=== PATIENT | female | born 1960 | race Caucasian/White ===

== ENCOUNTER → 2017-02-18 | Outpatient (CLI) | payer OTHER ==
[~2017-02-18] MED LIST: BUPR-83 PO; CLTP PO; CLX20 PO; CRS20 PO; DICL-201 PO; HYDUNK; LVXUNK; VITAMIN D; VTMB12UNK; amitiza
[2017-02-18 18:08] LABS: THYROID STIMULATING HORMONE 0.048 uIu/ml (0.300-4.500)
== END | disposition home or self-care (01) ==
LOC: C.LABPBG 15:33
PROVIDERS: ATTEND Internal Medicine Endocrinology, Diabetes & Metabolism
DX: E03.9 Hypothyroidism, unspecified (principal)

== ENCOUNTER 2023-12-02 14:48 | Inpatient (IN) ==
--- NOTE | 2023-12-02 15:52 | Emergency Department Note ---
Impression & Plan Depression with suicidal ideation, Acute UTI (urinary tract infection) ED Provider Note NAME: JOHN YI AGE: 63 SEX: F : 1960 ARRIVES VIA: Walk-In INFORMANT: Patient, ED PROVIDER(S): Scot Pedroza DO CHIEF COMPLAINT: Mental health evaluation HPI: The patient is a 63-year-old female who presented to the emergency department for mental health evaluation. The patient had an episode 2 weeks ago where she had an intervention. Family members were concerned about her. They thought that she was a threat to herself. The patient was seen by crisis. She did not get admitted to a mental health facility at that time. Symptoms continue to escalate the patient continues to have suicidal ideation with a plan to overdose. She went to see her family doctor today and was was sent directly to the emergency department for further evaluation. The patient denies any attempts at suicide. She denies having any recent alcohol or drug use. The patient admits to having significant depression but currently does not have a therapist. ROS: See above HPI for pertinent positives & negatives. A total of 10 systems reviewed and were otherwise negative. PAST MEDICAL HISTORY: See Below PAST SURGICAL HISTORY: See Below FAMILY HISTORY: See Below SOCIAL HISTORY: See Below HOME MEDICATIONS: See Below ALLERGIES: See Below VITALS: See Below PHYSICAL EXAMINATION: GENERAL: The patient is awake and alert. She appears anxious. EYES: The conjunctivae are clear. The pupils are round and reactive. EARS, NOSE, MOUTH AND THROAT: The nose is without any evidence of any deformity. NECK: The neck is nontender and supple. RESPIRATORY: Normal respiratory effort is noted there is no evidence of wheezing rhonchi or rales CARDIOVASCULAR: Regular rate and rhythm noted there no murmurs rubs or gallops normal S1 normal S2. GASTROINTESTINAL: The abdomen is soft. Abdomen is nontender. MUSCULOSKELETAL/EXTREMITIES: There is no evidence of gross deformity full range of motion is noted in the hips and shoulders. SKIN: There is no obvious evidence of any rash. There are no petechiae, pallor or cyanosis noted. NEUROLOGIC: Patient is awake alert and oriented x3. Gait was steady. PSYCH: The patient makes good eye contact mostly evaluation. The patient's affect is flat. She continues to admit to suicidal ideationsMood disorder, infection, hypoglycemia, electrolyte abnormalities, cardiac sources, intracerebral event, toxicologic, trauma, neurologic, as well as other pathologies. . MEDICAL DECISION MAKING: The patient is a 63-year-old female who presented to the emergency department for an evaluation mental health issues. The patient was referred here by her family doctor. She was having significant depression with suicidal ideation. The patient appeared to be in crisis. The patient was medically cleared in the emergency department but does appear to have signs of urinary tract infection on urinalysis. She was started on antibiotics in the emergency department. I discussed patient's condition with the mental health geriatric case manager. It does appear the patient would be a good candidate for inpatient management. She is currently being evaluated by [facility] for possible inpatient management at our facility. Triage Nursing notes reviewed. Prior medical records reviewed Vital Signs: reviewed and remarkable for no significant abnormalities Differential diagnosis: Mood disorder, infection, hypoglycemia, electrolyte abnormalities, cardiac sources, intracerebral event, toxicologic, trauma, neurologic, as well as other pathologies. ER treatment provided: See below Diagnostics interpreted by me: ECG: EKG was obtained in the emergency department. My interpretation is normal sinus rhythm at 66 bpm. There is no ectopy. There is no acute ST segment abnormalities noted. This was compared to a tracing from February 01, 2022. No changes were noted. Laboratory studies: As stated above and show below. Imaging studies: See below. Consultation(s): I discussed this case with the emergency departmental health geriatric case manager. Past Med/Surg History Problem List (Updated 12/02/23 @ 18:46 by Scot Pedroza DO) Acute UTI (urinary tract infection) (Acute) Depression with suicidal ideation (Acute) Stress incontinence Urinary incontinence Nocturia Urinary urgency Sensory deficit present Psoriatic arthritis Parkinsonism follows with [facility] Mild sleep apnea pt unaware. Mild cognitive impairment Joint pain Impaired functional mobility, balance, gait, and endurance Hypothyroidism in adult Hyperlipidemia Carmen's disease Frequent falls Fatigue Extremity pain Chronic rhinitis COVID-19 (Acute) Medical History Psoriatic arthritis Depression Anxiety Hyperlipidemia Frequent falls last fell out of bed in November 2023 - reports no injury. does not use cane/walker Carmen's disease Parkinsonism follows with [facility] Fatigue chronic fatigue History of COVID-19 12/20/22 -> severe cold and cough, headaches. treated with paxlovid. developed pneumonia and treated with abx. since resolved. Nausea and vomiting after administration of anesthetic agent History of anesthesia reaction interscaline block for shoulder surgery was ineffective Chronic back pain Urinary urgency GERD (gastroesophageal reflux disease) Chronic steroid use Cognitive decline mild - alert and oriented x3. "forgetful" at times. Ischemic vascular disease unsteady gait and lightheaded at times, last episode/last fall November 2023 - pt reports she fell out bed, no injury. no problems since. follows with [facility] Hypertension Hypothyroid Surgical History H/O bilateral oophorectomy (~2004) Hx of hysterectomy (~1994) S/P left knee arthroscopy S/P epidural steroid injection S/P arthroscopy of right shoulder History of esophagogastroduodenoscopy (EGD) History of colonoscopy History of herniorrhaphy History of appendectomy History of endoscopic sinus surgery History of nasal septoplasty Hx of LASIK Family History Mother Heart disease Myocardial infarction Father Prostate cancer Heart disease Other No family history of adverse response to anesthesia Social History Smoking Status: Never smoker Second Hand Exposure: Yes (parents smoked); Do You Dip or Chew Tobacco: No; Hx Alcohol Use: Yes Hx Substance Use: No Preferred Language: Guatemalan Communication Ability: Effective 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 Sulfa (Sulfonamide AdvReac Severe vaginal Verified 11/27/23 13:48 Antibiotics) yeast infections & arm skin blisters Home Meds Home Medications Medication Instructions Recorded Confirmed Cbd Oil 3 drp PO QAM PRN preventative of 02/01/22 12/02/23 joint problems Chaga Mushroom Supp 1 ea PO DAILY 02/01/22 12/02/23 folic acid 1 mg tablet 1 mg PO BID 02/01/22 12/02/23 levothyroxine 75 mcg tablet 75 mcg PO 0300 02/01/22 12/02/23 (Synthroid) methotrexate sodium 2.5 mg tablet 15 mg PO WK 02/01/22 12/02/23 pantoprazole 40 mg tablet,delayed 40 mg PO QAM 02/01/22 12/02/23 release simvastatin 20 mg tablet 20 mg PO HS 02/01/22 12/02/23 antiarthritic combination no.2 900 900 mg PO BID 04/07/22 12/02/23 mg tablet (glucosamine-chondroitin) calcium carbonate 600 mg-vitamin 1 cap PO BID 04/07/22 12/02/23 D3 12.5 mcg (500 unit) capsule (Calcium 600 with Vitamin D3) verapamil 240 mg 24 hr 240 mg PO BID 08/21/22 12/02/23 capsule,extended release sertraline 100 mg tablet 100 mg PO BID 11/27/23 12/02/23 Results & Data (ED) Vital Signs Vital Signs - 24 hr 12/02/23 15:16 12/02/23 18:49 Temperature 36.7 C 36.6 C Temperature Source Temporal Artery Scan Oral Pulse Rate 76 Pulse Rate [Right Finger] 74 Pulse Rhythm [Right Finger] Regular Pulse Strength [Right Finger] Normal Respiratory Rate 16 16 Respiratory Effort / Characteristics Non-Labored Spontaneous Non-Labored Spontaneous Respiratory Depth Normal Normal Respiratory Pattern Regular Regular Blood Pressure 141/78 H Blood Pressure [Left Arm] 115/74 Blood Pressure Mean 99 Blood Pressure Mean [Left Arm] 87 Blood Pressure Position Sitting Blood Pressure Position [Left Arm] Semi-fowlers Pulse Oximetry 97 97 Oxygen Delivery Method Room Air Room Air Sepsis Recent Fever Within 48 Hours No Sepsis New/Unexplained Change in Mental Status N/A Sepsis Action Taken by Nursing No Action Required Home Medications Current Medication List: was personally reviewed by me Laboratory Data Attestation: I reviewed the patient's lab results. 12/02/23 16:00 12/02/23 16:00 Lab Results 12/02/23 12/02/23 12/02/23 Range/Units 16:00 17:12 Unknown WBC 7.94 (4.8-10.8) K/ul RBC 4.23 (4.20-5.40) M/uL Hgb 13.5 (12.0-16.0) g/dl Hct 40.7 (37.0-47.0) % MCV 96.2 (80.0-100.0) fL MCH 31.9 (25.0-34.0) pg MCHC 33.2 (32.0-36.0) g/dL RDW Std Deviation 53.7 H (36.4-46.3) fL RDW Coeff of Karol 15.3 H (11.5-14.5) % Plt Count 230 (130-400) K/uL MPV 9.8 (9.4-12.4) fL Immature Gran % (Auto) 0.5 % Neut % (Auto) 71.6 % Lymph % (Auto) 14.5 % Dubois % (Auto) 8.3 % Eos % (Auto) 4.3 % Baso % (Auto) 0.8 % Neut # (Auto) 5.69 (1.40-6.50) K/uL Lymph # (Auto) 1.15 L (1.20-3.40) K/uL Dubois # (Auto) 0.66 H (0.11-0.59) K/uL Eos # (Auto) 0.34 (0.00-0.50) K/uL Baso # (Auto) 0.06 (0.00-0.20) K/uL Immature Gran # (Auto) 0.04 (0.01-0.20) K/uL Sodium 138 (136-145) mmol/L Potassium 4.3 (3.5-5.1) mmol/L Chloride 106 (98-107) mmol/L Carbon Dioxide 24 (21-32) mmol/L Anion Gap 8 (3-11) BUN 16 (6-23) mg/dl Creatinine 1.12 (0.6-1.2) mg/dl Est Cr Clr Drug Dosing 55.0 ml/min Est GFR ( Amer) 59.7 ml/min Est GFR (Non-Af Amer) 51.5 ml/min BUN/Creatinine Ratio 14.3 (10-20) Glucose 93 (70-99(Fasting)) mg/dl Calcium 9.6 (8.6-10.3) mg/dl Total Bilirubin 0.4 (0.2-1.0) mg/dl AST 20 (13-39) U/L ALT 9 (7-52) U/L Alkaline Phosphatase 88 (34-104) U/L Total Protein 7.2 (6.0-8.3) gm/dl Albumin 4.4 (3.4-5.0) gm/dl Globulin 2.8 (2.5-4.0) gm/dl Albumin/Globulin Ratio 1.6 (0.9-2) TSH 1.963 (0.300-4.500) uIu/ml Urine Color Yellow Urine Appearance Cloudy A (Clear) Urine pH 6.0 (4.5-7.5) Ur Specific [place] 1.013 (1.000-1.030) Urine Protein Negative (Negative) Urine Glucose (UA) Negative (Negative) Urine Ketones Negative (Negative) Urine Blood Negative (Negative) Urine Nitrite Negative (Negative) Urine Bilirubin Negative (Negative) Urine Urobilinogen Negative (Negative) Ur Leukocyte Esterase 3+ H (Negative) Urine WBC (Auto) >50 H (0-5) /hpf Urine RBC (Auto) 0-2 (0-2) /hpf U Hyaline Cast (Auto) 0-2 (0-2) /lpf U Epithel Cells (Auto) 0-2 (0-2) /hpf Urine Bacteria (Auto) 4+ H (None Seen) Salicylates < 3.0 L (3.0-30) mg/dl Urine Opiates Screen Neg (Neg) Ur Methadone, Qual Neg (Neg) Acetaminophen < 3 L (10-30) ug/ml Urine Barbiturates Neg (Neg) Ur Phencyclidine (PCP) Neg (Neg) U Amphetamin/Meth Scrn Neg (Neg) MDMA (Ecstasy) Screen Neg (Neg) U Benzodiazepines Scrn Neg (Neg) Ur Cocaine Metabolite Neg (Neg) U Marijuana (THC) Screen Neg (Neg) Ethyl Alcohol mg/dL < 10.0 (<10.0) mg/dl SARS-CoV-2, RNA, NAAT NEGATIVE (NEGATIVE) Administered Medications Discontinued Medications Cefdinir (Cefdinir 300 Mg Cap) 600 mg PO ONE STA; Protocol Stop: 12/02/23 18:45 Last Admin: 12/02/23 18:48 Dose: 600 mg Documented By: MOLINA Discharge Plan Visit Data Chief Complaint: Mental Health Evaluation Stated Complaint: SUICIDAL THOUGHTS, REF BY DOC ED Provider: Scot Pedroza Discharge Problem: Depression with suicidal ideation, Acute UTI (urinary tract infection) Patient Disposition: Still a Patient Forms Stand Alone Forms: My [facility] [employer], Suicide Prevention Resources Prescriptions Prescriptions: No Action verapamil 240 mg capsule,ext rel. pellets 24 hr 240 mg PO BID calcium carbonate-vitamin D3 [Calcium 600 with Vitamin D3] 600 mg-12.5 mcg (500 unit) capsule 1 cap PO BID glucosamine-chondroitin 900 mg tablet 900 mg PO BID levothyroxine [Synthroid] 75 mcg tablet 75 mcg PO 0300 methotrexate sodium 2.5 mg tablet 15 mg PO WK pantoprazole 40 mg tablet,delayed release (DR/EC) 40 mg PO QAM simvastatin 20 mg tablet 20 mg PO HS folic acid 1 mg tablet 1 mg PO BID Cbd Oil 3 drp PO QAM PRN (Reason: preventative of joint problems) Chaga Mushroom Supp 1 ea PO DAILY Rx Instructions: Take with tea sertraline 100 mg Tablet 100 mg PO BID Referrals Referrals: Murali Marin MD [Primary Care Provider] -
[2023-12-02 16:25] LABS: Basophils # (auto) 0.06 K/uL (0.00-0.20); Basophils % (auto) 0.8 %; Eosinophils # (auto) 0.34 K/uL (0.00-0.50); Eosinophils % (auto) 4.3 %; Hematocrit (blood only) 40.7 % (37.0-47.0); Hemoglobin 13.5 g/dl (12.0-16.0); Immature Granulocytes # (auto) 0.04 K/uL (0.01-0.20); Immature Granulocytes % (auto) 0.5 %; Lymphocytes # (auto) 1.15 K/uL (1.20-3.40); Lymphocytes % (auto) 14.5 %; Mean Corpuscular Hemoglobin 31.9 pg (25.0-34.0); Mean Corpuscular Hgb Conc 33.2 g/dL (32.0-36.0); Mean Corpuscular Volume 96.2 fL (80.0-100.0); Mean Platelet Volume 9.8 fL (9.4-12.4); Monocytes # (auto) 0.66 K/uL (0.11-0.59); Monocytes % (auto) 8.3 %; Neutrophils # (auto) 5.69 K/uL (1.40-6.50); Neutrophils % (auto) 71.6 %; Platelet Count 230 K/uL (130-400); RDW Coefficient of Variation 15.3 % (11.5-14.5); RDW Standard Deviation 53.7 fL (36.4-46.3); Red Blood Count 4.23 M/uL (4.20-5.40); White Blood Count 7.94 K/ul (4.8-10.8)
[2023-12-02 16:51] LABS: Albumin Globulin Ratio 1.6 (0.9-2); Albumin Level 4.4 gm/dl (3.4-5.0); BUN Creatinine Ratio 14.3 (10-20); Bilirubin,Total 0.4 mg/dl (0.2-1.0); Calcium 9.6 mg/dl (8.6-10.3); Est GFR (African American) 59.7 ml/min; Est GFR (Non-African American) 51.5 ml/min; Globulin 2.8 gm/dl (2.5-4.0); Potassium 4.3 mmol/L (3.5-5.1); Total Protein 7.2 gm/dl (6.0-8.3)
[2023-12-02 16:54] LABS: Acetaminophen < 3 ug/ml (10-30); Salicylate < 3.0 mg/dl (3.0-30)
[2023-12-02 17:04] LABS: Thyroid Stimulating Hormone 1.963 uIu/ml (0.300-4.500)
[2023-12-02 17:39] LABS: Appearance Urine Cloudy (Clear); Bacteria Urine Automated 4+ (None Seen); Bilirubin Urine Negative (Negative); Blood Urine Negative (Negative); Cast Urine Automated 0-2 /lpf (0-2); Color Urine Yellow; Epithelial Cell Urine Auto 0-2 /hpf (0-2); Glucose Urine UA Negative (Negative); Ketones Urine Negative (Negative); Leukocyte Esterase Urine 3+ (Negative); Nitrite Urine Negative (Negative); Protein Urine Negative (Negative); RBC Urine Automated 0-2 /hpf (0-2); Specific Gravity Urine 1.013 (1.000-1.030); Urobilinogen Urine Negative (Negative); WBC Urine Automated >50 /hpf (0-5)
[2023-12-02 18:06] LABS: Amphetamines+Metham, Urine Neg (Neg); Barbiturates, Urine Neg (Neg); Benzodiazepine, Urine Neg (Neg); Cocaine, Urine Neg (Neg); MDMA (Ecstacy), Urine Neg (Neg); Marijuana, Urine Neg (Neg); Methadone, Urine Neg (Neg); Opiate, Urine Neg (Neg); Phencyclidine, Urine Neg (Neg)
[2023-12-02] MEDS: CEFDINIR 300 MG CAP PO STA (18:48)
[2023-12-02] MEDS ORDERED: BISMUTH SUBSALICYLATE LIQD 236 ML PO PRN (21:43)
[2023-12-02] MEDS ORDERED: MAGNESIUM HYDROXIDE SUSP 30 ML UDC PO PRN (21:43)
[2023-12-02] MEDS ORDERED: ALUMINUM/MAGNESIUM SUSP 30 ML UDC PO PRN (21:43)
[2023-12-02] MEDS ORDERED: SODIUM CHLORIDE 0.65% NA SOLN 45 ML (OCEAN) PRN (21:43)
[2023-12-02 22:12] LABS: Chol HDL Ratio 2.4 (0-5)
[2023-12-02] MEDS: SERTRALINE HCL 100 MG TABLET PO SCH (23:11)
[2023-12-02] MEDS: hydrOXYzine HCl 25 MG TAB PO PRN (23:14)
[2023-12-03 07:59] LABS: Estimated Average Glucose 128 mg/dl; Hemoglobin A1C 6.1 % (4.5-5.6)
[2023-12-03] MEDS: CEFDINIR 300 MG CAP PO SCH (11:41)
--- NOTE | 2023-12-03 13:16 | History & Physical ---
Date of Service December 03, 2023 Impression / Recommendations Impression 63 year old female with minimal past psychiatric history who presents with suicidal ideations after being the victim of a romance scam. (1) Adjustment disorder with depressed mood: Plan Admit to inpatient unit. Participate in all milieu therapy. Patient's current medications of 200mg Sertraline will be continued. Therapy will be the mainstay of treatment for this situation: Acknowledging that this was a scam and moving forward to ensure it doesn't happen again. Suicide Risk Level Suicide Risk Level Comments: risk level low while the patient is in the psych unit Protective Factors Assessment Employed: No Psychiatric History Identifying Data JOHN YI is a 63-year-old F who currently lives with her and was admitted on 12/02/23 21:29 on a 201 voluntary commitment for suicidal ideations secondary to her being the victim of a romance scam. Chief Complaint "I started a friendship with Rafael". History of Present Illness 63 year old female with no significant past psychiatric history who presented after voicing suicidal ideations with a plan to overdose on her medications. The patient recently was the subject of family intervention because she has been involved online with a romance scammer that she was led to believe was an actor Rafael Deluca. She described how this months long online romance occurred. It has all the classic red flags of a typical romance scam. She states that she sent at least 1000 dollars in [employer] Gift cards to the scammer. Initially when we started the interview, the patient continued to talk about the scammer as "Luke" and said she was holding out hope one day to actually meet him. I explained to her in depth how these scams work and everything that I outlined to her about their methods she recognized. We discussed that "Rafael" had his photos stolen and the person sending her love notes and even bush was actually a group of young west men. She did superficially acknowledge that it was probably the case. We discussed that getting through this embarrassing situation was by learning as much as she can about what happened to her and realizing that she was profiled and targeted by criminals. One step that she agreed to was to not refer to the person by the name he gave but by calling him "the scammer". She says that she knows she will get through this but it is so difficult. At the time of the interview, she denied suicidal or homicidal ideation and showed no signs of amberly or psychosis. She realizes that she became a target because she is not happy in her relationship with her : She feels unappreciated by her and two adult children. She particularly wants to get through this so she can see her grandchildren again. Past Psychiatric History Previous Psych History: Patient has been prescribed Sertraline 100 mg BID by her primary care practitioner. Outpatient Services: none at this time Previous Psych Admissions: denies History of Previous Suicide Attempt: No Allergies Allergy/AdvReac Type Severity Reaction Status Date / Time ampicillin Allergy Severe Hives Verified 11/27/23 13:48 latex Allergy Intermediate rash and Verified 11/27/23 13:48 localized swelling Penicillins Allergy Intermediate able to Verified 11/27/23 13:48 tolerate penicillin since having ampicillin allergy. Sulfa (Sulfonamide AdvReac Severe vaginal Verified 11/27/23 13:48 Antibiotics) yeast infections & arm skin blisters Home Medications Medication Instructions Recorded Confirmed Type Cbd Oil 3 drp PO QAM PRN preventative of 02/01/22 12/02/23 History joint problems Chaga Mushroom Supp 1 ea PO DAILY 02/01/22 12/02/23 History folic acid 1 mg tablet 1 mg PO BID 02/01/22 12/02/23 History levothyroxine 75 mcg tablet 75 mcg PO 0300 02/01/22 12/02/23 History (Synthroid) methotrexate sodium 2.5 mg tablet 15 mg PO WK 02/01/22 12/02/23 History pantoprazole 40 mg tablet,delayed 40 mg PO QAM 02/01/22 12/02/23 History release simvastatin 20 mg tablet 20 mg PO HS 02/01/22 12/02/23 History antiarthritic combination no.2 900 900 mg PO BID 04/07/22 12/02/23 History mg tablet (glucosamine-chondroitin) calcium carbonate 600 mg-vitamin 1 cap PO BID 04/07/22 12/02/23 History D3 12.5 mcg (500 unit) capsule (Calcium 600 with Vitamin D3) verapamil 240 mg 24 hr 240 mg PO BID 08/21/22 12/02/23 History capsule,extended release sertraline 100 mg tablet 100 mg PO BID 11/27/23 12/02/23 History Family History Family History of: Doesn't Know Alcohol History Hx of Alcohol Use Over the Past 12 Months: No AUDIT Total Score: 0 Smoking Use Have You Smoked or Used Tobacco Products in the Last 30 Days: No Smoking Status: Never smoker Substance History Hx of Prescription Med Misuse Over the Past 12 Months: No Hx of Over the Counter Med Misuse Over the Past 12 Months: No Hx of Inhalent Misuse Over the Past 12 Months: No Hx of Organic Substance Use Over the Past 12 Months: No Hx of Illegal Substances/Street Drug Use Over Past 12 Months: No Problems as a Result of Past Substance Use: None Identified Personal History Living Arrangements: Home Highest Grade Completed: High School Graduate Marital Status: Number Of Children: 2 Beliefs That Will Affect Care: None Patient History Medical History Psoriatic arthritis Depression Anxiety Hyperlipidemia Frequent falls last fell out of bed in November 2023 - reports no injury. does not use cane/walker Carmen's disease Parkinsonism follows with [facility] Neurology Fatigue chronic fatigue History of COVID-19 12/20/22 -> severe cold and cough, headaches. treated with paxlovid. developed pneumonia and treated with abx. since resolved. Nausea and vomiting after administration of anesthetic agent History of anesthesia reaction interscaline block for shoulder surgery was ineffective Chronic back pain Urinary urgency GERD (gastroesophageal reflux disease) Chronic steroid use Cognitive decline mild - alert and oriented x3. "forgetful" at times. Ischemic vascular disease unsteady gait and lightheaded at times, last episode/last fall November 2023 - pt reports she fell out bed, no injury. no problems since. follows with [facility] Neurology Hypertension Hypothyroid Surgical History H/O bilateral oophorectomy (~2004) Hx of hysterectomy (~1994) S/P left knee arthroscopy S/P epidural steroid injection S/P arthroscopy of right shoulder History of esophagogastroduodenoscopy (EGD) History of colonoscopy History of herniorrhaphy History of appendectomy History of endoscopic sinus surgery History of nasal septoplasty Hx of LASIK Family History Mother Heart disease Myocardial infarction Father Prostate cancer Heart disease Other No family history of adverse response to anesthesia Social History Smoking Status: Never smoker Second Hand Exposure: Yes (parents smoked); Do You Dip or Chew Tobacco: No; Hx Alcohol Use: Yes Hx Substance Use: No Preferred Language: Marshallese Communication Ability: Effective Mail Distribution Scheme Examiner Required: No Beliefs That Will Affect Care: None Current Living Situation: Spouse Feels Safe at Home: Yes Gender Identity: Female Assistive Devices: Cane Physical Exam Mental Examination: Appearance: Well Groomed Eye Contact: Breaks Contact Motor Behavior: Unremarkable Speech: Normal Mood: Calm Affect: Calm Thought Process: Intact Hallucinations: None Insight: Poor Judgement: Poor Psychiatric: Orientation: alert and oriented x 3 Apperance: appropriately dressed and appropriately groomed Eye Contact: good eye contact Motor Behavior: + tremor Speech: normal rate/rhythm/volume of speech Affect: + depressed affect and + anxious affect Mood: + depressed mood and + anxious mood Thought Process: goal directed thought process, linear/logical thought process and clear/coherent thought process Thought Content: reality based without delusions Suicidal Thoughts: denies suicidal thoughts, denies suici carmela plan and denies suicidal intent Homicidal Thoughts: denies homicidal thoughts, denies homicidal plan and denies homicidal intent Hallucinations: no auditory hallucinations, no visual hallucinations, no tactile hallucinations and no gustatory hallucinations Cognition: recent memory grossly intact, remote memory grossly intact and attention grossly intact Estimated Intelligence: average estimated intelligence and consistent with education level Insight: + impaired insight Judgment: + impaired judgement Vital Signs (Past 24 Hours): Last Vital Signs Temp 36.5 C 12/03/23 06:34 Pulse 75 12/03/23 06:35 Resp 16 12/03/23 06:34 BP 127/84 12/03/23 06:35 Pulse Ox 97 12/02/23 23:06 O2 Del Method Room Air 12/02/23 23:06 Results & Data ([facility]) Laboratory Results Laboratory Results - last 24 hr 12/02/23 12/02/23 12/02/23 16:00 17:12 Unknown WBC 7.94 RBC 4.23 Hgb 13.5 Hct 40.7 MCV 96.2 MCH 31.9 MCHC 33.2 RDW Std Deviation 53.7 H RDW Coeff of Karol 15.3 H Plt Count 230 MPV 9.8 Immature Gran % (Auto) 0.5 Neut % (Auto) 71.6 Lymph % (Auto) 14.5 [place] % (Auto) 8.3 Eos % (Auto) 4.3 Baso % (Auto) 0.8 Neut # (Auto) 5.69 Lymph # (Auto) 1.15 L [place] # (Auto) 0.66 H Eos # (Auto) 0.34 Baso # (Auto) 0.06 Immature Gran # (Auto) 0.04 Sodium 138 Potassium 4.3 Chloride 106 Carbon Dioxide 24 Anion Gap 8 BUN 16 Creatinine 1.12 Est Cr Clr Drug Dosing 55.0 Est GFR ( Amer) 59.7 Est GFR (Non-Af Amer) 51.5 BUN/Creatinine Ratio 14.3 Glucose 93 Estimat Average Glucose 128 Hemoglobin A1c 6.1 H Calcium 9.6 Total Bilirubin 0.4 AST 20 ALT 9 Alkaline Phosphatase 88 Total Protein 7.2 Albumin 4.4 Globulin 2.8 Albumin/Globulin Ratio 1.6 Triglycerides 74 Cholesterol 149 LDL Cholesterol, Calc 71 VLDL Cholesterol, Calc 15 HDL Cholesterol 63 Cholesterol/HDL Ratio 2.4 TSH 1.963 Urine Color Yellow Urine Appearance Cloudy A Urine pH 6.0 Ur Specific [place] 1.013 Urine Protein Negative Urine Glucose (UA) Negative Urine Ketones Negative Urine Blood Negative Urine Nitrite Negative Urine Bilirubin Negative Urine Urobilinogen Negative Ur Leukocyte Esterase 3+ H Urine WBC (Auto) >50 H Urine RBC (Auto) 0-2 U Hyaline Cast (Auto) 0-2 U Epithel Cells (Auto) 0-2 Urine Bacteria (Auto) 4+ H Salicylates < 3.0 L Urine Opiates Screen Neg Ur Methadone, Qual Neg Acetaminophen < 3 L Urine Barbiturates Neg Ur Phencyclidine (PCP) Neg U Amphetamin/Meth Scrn Neg MDMA (Ecstasy) Screen Neg U Benzodiazepines Scrn Neg Ur Cocaine Metabolite Neg U Marijuana (THC) Screen Neg Ethyl Alcohol mg/dL < 10.0 SARS-CoV-2, RNA, NAAT NEGATIVE Current Inpatient Medications Current Inpatient Medications: Current Inpatient Medications Acetaminophen (Acetaminophen 325 Mg Tab) 650 mg PO Q4H PRN PRN Reason: Headache or Minor Fever Stop: 01/01/24 21:42 Al Hydrox/Mg Hydrox/Simethicone (Aluminum/Magnesium Susp 30 Ml Udc) 30 ml PO Q4H PRN PRN Reason: GI Upset Stop: 01/01/24 21:42 Bismuth Subsalicylate (Bismuth Subsalicylate Liqd 236 Ml) 15 ml PO PRN PRN PRN Reason: Loose Stool Stop: 01/01/24 21:42 Cefdinir (Cefdinir 300 Mg Cap) 300 mg PO BID [facility]; Protocol Stop: 12/05/23 08:59 Last Admin: 12/03/23 11:41 Dose: 300 mg Folic Acid (Folic Acid 1 Mg Tab) 1 mg PO BID ORA Stop: 01/02/24 20:59 Hydroxyzine HCl (Hydroxyzine Hcl 25 Mg Tab) 50 mg PO HSZ PRN PRN Reason: Insomnia Stop: 01/01/24 21:42 Last Admin: 12/03/23 01:06 Dose: 50 mg Hydroxyzine HCl (Hydroxyzine Hcl 25 Mg Tab) 25 mg PO Q4H PRN PRN Reason: Anxiety Stop: 01/01/24 21:42 Levothyroxine Sodium (Levothyroxine Sodium 75 Mcg Tablet) 75 mcg PO 0300 [facility] Stop: 01/03/24 02:59 Magnesium Hydroxide (Magnesium Hydroxide Susp 30 Ml Udc) 30 ml PO DAILY PRN PRN Reason: Constipation Stop: 01/01/24 21:42 Methotrexate (Methotrexate Sodium 2.5 Mg Tab) 15 mg PO WK ORA Stop: 01/02/24 13:14 Pantoprazole Sodium (Pantoprazole 40 Mg Tab) 40 mg PO QAM ORA Stop: 01/03/24 08:59 Sertraline HCl (Sertraline Hcl 100 Mg Tablet) 100 mg PO BID ORA Stop: 01/01/24 22:59 Last Admin: 12/03/23 11:41 Dose: 100 mg Sertraline HCl (Sertraline Hcl 100 Mg Tablet) 100 mg PO BID [facility] Stop: 01/02/24 20:59 Simvastatin (Simvastatin 20 Mg Tab) 20 mg PO HS ORA Stop: 01/02/24 21:59 Sodium Chloride (Sodium Chloride 0.65% Na Soln 45 Ml ([place])) 1 - 2 sprays NA PRN PRN PRN Reason: Nasal Dryness/Congestion Stop: 01/01/24 21:42 Verapamil HCl (Verapamil Hcl 240 Mg Tabcr) 240 mg PO BID [facility] Stop: 01/02/24 20:59
--- NOTE | 2023-12-03 15:15 | Electrocardiogram Report ---
Test Reason : Blood Pressure : / mmHG Vent. Rate : 066 BPM Atrial Rate : 066 BPM P-R Int : 190 ms QRS Dur : 074 ms QT Int : 424 ms P-R-T Axes : 064 041 049 degrees QTc Int : 444 ms Normal sinus rhythm Possible Left atrial enlargement Septal infarct (cited on or before 01-FEB-2022) Abnormal ECG When compared with ECG of 01-FEB-2022 00:21, Vent. rate has decreased BY 37 BPM Confirmed by Scot Leslie ([id number]) on 12/03/2023 3:14:52 PM Referred By: Mac Marin Confirmed By:Scot Leslie
[2023-12-03] MEDS ORDERED: SERTRALINE HCL 100 MG TABLET PO SCH (21:00)
--- OUTSIDE RECORDS SUMMARY | 2023-12-03 21:22 | External Medical Summary | Summary of Care ---
Author Name Unknown Organization [facility] Address [address] [place] [address] Phone [phone] Care Team Providers Care Motor Setter Name Role Phone Santana Bellamy PA-C Primary Care Provider [phone] Encounter Details Date Type Department Care Team (Late st Contact Info) Description 11/30/2023 Orders Only Laboratory [address] [place] [id number] Pamela Hammer CRNP [address] [address] Urgency of urination*; Stress incontinence; Mixed incontinence Allergies Active Allergy Reactions Criticality Noted Date Comments Sulfamethoxazole-Trimethoprim Rash 2016 Erythromycin 05/07/2004 nausea Latex 08/22/2010 documented as of this encounter (statuses as of 11/30/2023) Medications Medication Sig Dispensed Refills Start Date End Date Status CALCIUM 600 + D 600-200 MG-UNIT PO TABS daily 0 01/07/2007 Active BUPROPION HCL 200 MG PO TB12 1 tab daily Active BIOTIN 1 MG PO CAPS 1 tab daily Acti ve vitamin c (ASCORBIC ACID) 500 MG Tablet Daily Activ e Cetirizine HCl (ZYRTEC ALLERGY) 10 MG Capsule Daily Active pantoprazole (PROTONIX) 20 MG TBEC Daily Act gilson METHOtrexate 2.5 MG TabletIndications:8 Tabs once weekly Take by mouth once a week. Indications: 8 Tabs once weekly Active Diclofenac (ZORVOLEX) 35 MG CAPS Take by mouth. Active levothyroxine sodium (LEVOXYL) 112 MCG Tablet Take 112 mcg by mouth daily first thing in the morning. (at least 30 min prior to breakfast or other meds) Active Nortriptyline HCl 50 MG Capsule Take 50 mg by mouth at bedtime. Active simvastatin (ZOCOR) 20 MG Tablet Take 20 mg by mouth daily. Active Topiramate (TOPAMAX) 50 MG Tablet Take 50 mg by mouth 2 times a day. Active Linaclotide 290 MCG Capsule Take 290 mcg by mouth daily before breakfast. Active azithromycin (ZITHROMAX) 500 MG Tablet Take 500 mg by mouth once a day on Thursday, Thursday, and Thursday only. Active Hydrocortisone 2.5 % External CreamIndications:Sebo rrheic dermatitis apply to affected area of rash, usually face after bathing only as needed 15 g 1 10/29/2020 Active Methotrexate 2.5 MG Oral Tablet Take by mouth. Active Xeljanz XR 11 MG Oral Tablet Extended Release 24 Hour (Tofacitinib Citrate ER) Take 11 mg by mouth. 05/30/2020 Active documented as of this encounter (statuses as of 11/30/2023) Active Problems Problem Noted Date Diagnosed Date Psoriatic arthritis 11/28/2016 Hx of actinic keratosis 11/20/2011 ADVANCE DIRECTIVE INFORMATION 01/07/2007 Overview: Yes, Patient instructed to provide copy of advance directive for provider to review and to be scanned into Electronic Medical Record Other allergic rhinitis 07/11/2004 Overview: ICD-10 update of inactive term Chronic sinusitis 07/11/2004 Esophageal reflux 05/07/2004 GENERALIZED ANXIETY DIS 05/07/2004 Headache Overview: ICD-10 update of inactive term Temporomandibular joint disorders, unspecified Degeneration of cervical intervertebral disc Chronic pharyngitis Chronic laryngitis documented as of this encounter (statuses as of 11/30/2023) Resolved Problems Problem Noted Date Diagnosed Date Resolved Date Chronic sinusitis 08/10/2008 Overview: Resolved per Duplicate Protocol #2. documented as of this encounter (statuses as of 11/30/2023) Social History Tobacco Use Types Packs/Day Years Used Date Smoking Tobacco: Never Smokeless Tobacco: Never Comments:passive smoke in ch ildhood from mother Alcohol Use Standard Drinks/Week Comments Yes 0 (1 standard drink = 0.6 oz pur e alcohol) a couple of times a year Sex and Gender Information Value Date Recorded Sex Assigned at Not on file Gender Identity Not on file Sexual Orientation Not on file Job Start Date Occupation Industry Not on file Not on file Not on file documented as of this encounter Plan of Treatment Scheduled Orders Name Type Priority Associated Diagnoses Orde r Schedule CULTURE, URINE, QUANTITATIVE Lab Routine Stress incontinence Mixed incontinence Urgency of urination Expected: 11/30/2023, Expires: 11/29/2024 BASIC METABOLIC PANEL Lab Routine Stress incontinence Mixed incontinence Urgency of urination Expected: 11/30/2023, Expires: 11/29/2024 CBC WITH WBC DIFFERENTIAL Lab Routine Stress incontinence Mixed incontinence Urgency of urination Expected: 11/30/2023, Expires: 11/29/2024 Health Maintenance Due Date Last Done Comments Lipid Panel 1958 Depression Screening 1970 HIV Screening 1973 TSH 1976 DTaP,Tdap,and Td Vaccines (1 - Tdap) 1977 Mammogram 1998 Cologuard 2003 Colonoscopy 2003 Colorectal Cancer Screening 2003 Fecal Occult Blood Test 2003 Sigmoidoscopy 2003 COVID-19 Vaccine (2 - Modern a risk series) 10/26/2020 09/28/2020 Pneumococcal Vaccine: 65+ Years (2 of 2 - PCV) 11/06/2021 11/06/2020 DXA Scan 2023 Influenza Vaccine (FLU shot) (Season Ended) 2024 Zoster Vaccines Completed 06/11/2020, 03/15/2020 GARDASIL-HPV IMMUNIZATION SERIES Aged Out No longer eligible b ased on patient's age to complete this topic Hepatitis B Aged Out No longer eligi ble based on patient's age to complete this topic MENINGOCOCCAL (MENACTRA/MENVEO) Aged Out No longer eligible b ased on patient's age to complete this topic documented as of this encounter Medical Devices Not on filedocumented as of this encounter Visit Diagnoses Diagnosis Urgency of urination- Primary Stress incontinence Female stress incontinence Mixed incontinence Mixed incontinence urge and stress (male)(female) documented in this encounter Care Teams Motor Setter Relationship Specialty Start Date End Date Santana Bellamy PA-C [address] [place] [id number] PCP - General Physician Weed Thinner 12/08/18 documented as of this encounter
[2023-12-03] MEDS: FOLIC ACID 1 MG TAB PO SCH (21:35)
[2023-12-03] MEDS: VERAPAMIL HCL 240 MG TABCR PO SCH (21:36)
[2023-12-03] MEDS: SIMVASTATIN 20 MG TAB PO SCH (21:36)
[2023-12-04] MEDS: LEVOTHYROXINE SODIUM 75 MCG TABLET PO SCH (00:17)
[2023-12-04] MEDS: PANTOprazole 40 MG TAB PO SCH (08:45)
--- NOTE | 2023-12-04 09:56 | Psychiatric Progress Note ---
Date of Service December 04, 2023 Impression / Recommendations Impression 63 year old female with minimal past psychiatric history who presents with suicidal ideations after being the victim of a romance scam. (1) Adjustment disorder with depressed mood: Plan Continue current treatment in the [facility]. Patient was already on ant depressant medication prior to admission, no reason to change it at this time. Suicide Risk Level Suicide Risk Level Comments: risk level low while the patient is in the psych unit Risk Factors Assessment Do You Have Access To A Gun?: Yes (Patient states she is unsure how to use firearms) Protective Factors Assessment Employed: No Interval History Chief Complaint "My family said they've been telling me the same thing". Review of Systems Sleep Information Total Hours of Sleep: 5 Sleep Comments: NE Vistaril at HS Meal Information Percent Meal Consumed - Breakfast: 75 Percent Meal Consumed - Lunch: 75 Percent Meal Consumed - Dinner: 100 Nutrition Comment: pt. ate some breakfast after waking around 1130 Subjective Subjective Patient was seen & assessed and interval progress reviewed with treatment team, nursing and social work. She said she is doing ok. She had a visit from her last night. It went quite well. It seems that she did admit to them th at they she knew that her online relationship was a scam. We discussed that therapy would be very useful for her in the future. She agreed. She has been participating in the [facility]. Physical Exam Mental Examination Appearance: Well Groomed Eye Contact: Direct Eye Contact Motor Behavior: Unremarkable Speech: Normal Mood: Calm Affect: Calm Thought Process: Intact Hallucinations: None Insight: Fair Judgement: Fair Psychiatric Orientation: alert and oriented x 3 Apperance: appropriately dressed and appropriately groomed Eye Contact: good eye contact Motor Behavior: no abnormal motor movements Speech: normal rate/rhythm/volume of speech Affect: + depressed affect Mood: + anxious mood Thought Process: goal directed thought process, linear/logical thought process and clear/coherent thought process Thought Content: reality based without delusions Suicidal Thoughts: denies suicidal thoughts, denies suicidal plan and denies suicidal intent Homicidal Thoughts: denies homicidal thoughts, denies homicidal plan and denies homicidal intent Hallucinations: no auditory hallucinations, no visual hallucinations, no tactile hallucinations and no gustatory hallucinations Cognition: recent memory grossly intact, remote memory grossly intact and attention grossly intact Estimated Intelligence: average estimated intelligence and consistent with education level Insight: + fair insight Judgment: + fair judgement Vital Signs (Past 24 Hours) Last Vital Signs Temp 37 C 12/04/23 06:45 Pulse 76 12/04/23 06:45 Resp 16 12/04/23 06:45 BP 101/68 12/04/23 06:45 Pulse Ox 97 12/02/23 23:06 O2 Del Method Room Air 12/02/23 23:06 Results & Data ([facility]) Current Inpatient Medications Current Inpatient Medications: Current Inpatient Medications Acetaminophen (Acetaminophen 325 Mg Tab) 650 mg PO Q4H PRN PRN Reason: Headache or Minor Fever Stop: 01/01/24 21:42 Al Hydrox/Mg Hydrox/Simethicone (Aluminum/Magnesium Susp 30 Ml Udc) 30 ml PO Q4H PRN PRN Reason: GI Upset Stop: 01/01/24 21:42 Bismuth Subsalicylate (Bismuth Subsalicylate Liqd 236 Ml) 15 ml PO PRN PRN PRN Reason: Loose Stool Stop: 01/01/24 21:42 Cefdinir (Cefdinir 300 Mg Cap) 300 mg PO BID [facility]; Protocol Stop: 12/05/23 08:59 Last Admin: 12/04/23 08:45 Dose: 300 mg Folic Acid (Folic Acid 1 Mg Tab) 1 mg PO BID [facility] Stop: 01/02/24 20:59 Last Admin: 12/04/23 08:45 Dose: 1 mg Hydroxyzine HCl (Hydroxyzine Hcl 25 Mg Tab) 50 mg PO HSZ PRN PRN Reason: Insomnia Stop: 01/01/24 21:42 Last Admin: 12/03/23 21:45 Dose: 50 mg Hydroxyzine HCl (Hydroxyzine Hcl 25 Mg Tab) 25 mg PO Q4H PRN PRN Reason: Anxiety Stop: 01/01/24 21:42 Levothyroxine Sodium (Levothyroxine Sodium 75 Mcg Tablet) 75 mcg PO HS ORA Stop: 01/03/24 21:59 Magnesium Hydroxide (Magnesium Hydroxide Susp 30 Ml Udc) 30 ml PO DAILY PRN PRN Reason: Constipation Stop: 01/01/24 21:42 Methotrexate (Methotrexate Sodium 2.5 Mg Tab) 15 mg PO We@0900 [facility] Stop: 01/08/24 08:59 Pantoprazole Sodium (Pantoprazole 40 Mg Tab) 40 mg PO QAM [facility] Stop: 01/03/24 08:59 Last Admin: 12/04/23 08:45 Dose: 40 mg Sertraline HCl (Sertraline Hcl 100 Mg Tablet) 100 mg PO BID [facility] Stop: 01/01/24 22:59 Last Admin: 12/04/23 08:46 Dose: 100 mg Simvastatin (Simvastatin 20 Mg Tab) 20 mg PO HS [facility] Stop: 01/02/24 21:59 Last Admin: 12/03/23 21:36 Dose: 20 mg Sodium Chloride (Sodium Chloride 0.65% Na Soln 45 Ml ([place])) 1 - 2 sprays NA PRN PRN PRN Reason: Nasal Dryness/Congestion Stop: 01/01/24 21:42 Verapamil HCl (Verapamil Hcl 240 Mg Tabcr) 240 mg PO BID [facility] Stop: 01/02/24 20:59 Last Admin: 12/04/23 08:45 Dose: 240 mg
[2023-12-04] MEDS: ACETAMINOPHEN 325 MG TAB PO PRN (12:45)
[2023-12-04] MEDS: IBUPROFEN 600 MG TAB PO PRN (17:47)
[2023-12-05] MEDS: LEVOTHYROXINE SODIUM 75 MCG TABLET PO SCH (00:08)
[2023-12-05] MEDS: hydrOXYzine HCl 25 MG TAB PO PRN (03:10)
--- NOTE | 2023-12-05 09:37 | Psychiatric Progress Note ---
Date of Service December 05, 2023 Impression / Recommendations Impression 63 year old female with history of depression who presents with suicidal ideations after being the victim of a romance scam. Diagnostically unclear seems consistent with depression with psychotic features given difficulty distinguishing reality of recent situation and concern for possible delusional component vs worsening of Parkinsonism. 12/05/2023: Concern for delusional component to her presentation. Given poor sleep, history of parkinson-like features and concern for psychotic features she is agreeable to trial of Seroquel in addition to sertraline for depression augmentation. Will start low given history of Parkinsonism. Reviewed side effects including but not limited to: movement (TD, NMS), cardiac (QTc prolongation), and metabolic (stroke, insulin resistance) and necessity for fasting lipid and glucose labwork and AIMS done with score of 0. Fasting lipid panel normal, HbA1c elevated at 6.1. Overall, I spent a total of 38 minutes on this case including meeting with the patient, reviewing the chart, nursing report, multidisciplinary team meeting, orders, and documentation. (1) Major depression with psychotic features: (2) Depression with suicidal ideation: Plan 12/05/2023: Start Seroquel 50mg HS po. Continue sertraline 100mg BID. 12/04/2023: Continue current medications and tx plan. 12/03/2023: The patient was admitted to the [facility] ([facility] mental health unit) on q15 min checks (behavioral with suicide precautions) for safety. The patient will participate in group, recreational, and milieu therapies and will be offered additional individual and family sessions as clinically appropriate. Suicide Risk Level Suicide Risk Level: Moderate (q15 min suicide checks) (SI with plan prior to admission, now denying SI, feels safe in the hospital) Risk Factors Assessment Do You Have Access To A Gun?: Yes (Patient states she is unsure how to use firearms) Protective Factors Assessment Employed: No Interval History Identifying Information JOHN YI is a 63-year-old F who currently lives with her and was admitted on 12/02/23 21:29 on a 201 voluntary commitment for suicidal ideations secondary to her being the victim of a romance scam. Chief Complaint "Just sad". Review of Systems Sleep Information Total Hours of Sleep: 3 Sleep Comments: Pt requested PRN Vistaril and still didn't sleep Meal Information Percent Meal Consumed - Breakfast: 75 Percent Meal Consumed - Lunch: 100 Percent Meal Consumed - Dinner: 100 Nutrition Comment: pt. ate some breakfast after waking around 1130 Subjective Subjective Patient was seen & assessed and interval progress reviewed with treatment team nursing and social work. Isolates a lot. Poor energy. Continues to question if online relationship was true. Poor sleep last night. Upset to be missing her mariela odell's birthday. Today reports sadness over not being able to discharge home as soon as she had hoped. Discusses belief she has been FaceTiming with a celebrity, though others view this as a potential scam. She acknowledges the possibility of being deceived by AI but remains partially convinced of the celebrity's direct involvement. She admits to previously offering money to this person she believes is the celebrity. She reports struggling with insomnia and has agreed to start taking Seroquel to help with sleep and depressive symptoms. Patient also notes financial difficulties, stating she has no money left following the romantic scam. Physical Exam Psychiatric Orientation: alert and oriented x 3 Apperance: appropriately dressed and appropriately groomed Eye Contact: good eye contact Motor Behavior: no abnormal motor movements Speech: normal rate/rhythm/volume of speech Affect: + depressed affect Mood: + depressed mood and + anxious mood Thought Process: goal directed thought process Thought Content: reality based without delusions Suicidal Thoughts: denies suicidal thoughts Homicidal Thoughts: denies homicidal thoughts Hallucinations: no auditory hallucinations and no visual hallucinations Cognition: recent memory grossly intact, remote memory grossly intact and attention grossly intact Estimated Intelligence: average estimated intelligence and consistent with education level Insight: + limited insight Judgment: + limited judgement Vital Signs (Past 24 Hours) Last Vital Signs Temp 36.6 C 12/05/23 03:12 Pulse 71 12/05/23 03:12 Resp 16 12/05/23 03:12 BP 118/77 12/05/23 03:12 Pulse Ox 96 12/05/23 03:12 O2 Del Method Room Air 12/05/23 03:12 Results & Data ([facility]) Current Inpatient Medications Current Inpatient Medications: Current Inpatient Medications Acetaminophen (Acetaminophen 325 Mg Tab) 650 mg PO Q4H PRN PRN Reason: Headache or Minor Fever Stop: 01/01/24 21:42 Last Admin: 12/04/23 12:45 Dose: 650 mg Al Hydrox/Mg Hydrox/Simethicone (Aluminum/Magnesium Susp 30 Ml Udc) 30 ml PO Q4H PRN PRN Reason: GI Upset Stop: 01/01/24 21:42 Bismuth Subsalicylate (Bismuth Subsalicylate Liqd 236 Ml) 15 ml PO PRN PRN PRN Reason: Loose Stool Stop: 01/01/24 21:42 Folic Acid (Folic Acid 1 Mg Tab) 1 mg PO BID ORA Stop: 01/02/24 20:59 Last Admin: 12/05/23 09:03 Dose: 1 mg Hydroxyzine HCl (Hydroxyzine Hcl 25 Mg Tab) 50 mg PO HSZ PRN PRN Reason: Insomnia Stop: 01/01/24 21:42 Last Admin: 12/05/23 00:07 Dose: 50 mg Hydroxyzine HCl (Hydroxyzine Hcl 25 Mg Tab) 25 mg PO Q4H PRN PRN Reason: Anxiety Stop: 01/01/24 21:42 Last Admin: 12/05/23 03:10 Dose: 25 mg Ibuprofen (Ibuprofen 600 Mg Tab) 600 mg PO Q8H PRN PRN Reason: headache/pain Stop: 01/03/24 14:59 Last Admin: 12/04/23 17:47 Dose: 600 mg Levothyroxine Sodium (Levothyroxine Sodium 75 Mcg Tablet) 75 mcg PO 0000 [facility] Stop: 01/04/24 00:00 Last Admin: 12/05/23 00:08 Dose: 75 mcg Magnesium Hydroxide (Magnesium Hydroxide Susp 30 Ml Udc) 30 ml PO DAILY PRN PRN Reason: Constipation Stop: 01/01/24 21:42 Methotrexate (Methotrexate Sodium 2.5 Mg Tab) 15 mg PO We@0900 ORA Stop: 01/08/24 08:59 Pantoprazole Sodium (Pantoprazole 40 Mg Tab) 40 mg PO QAM ORA Stop: 01/03/24 08:59 Last Admin: 12/05/23 09:03 Dose: 40 mg Sertraline HCl (Sertraline Hcl 100 Mg Tablet) 100 mg PO BID ORA Stop: 01/01/24 22:59 Last Admin: 12/05/23 09:03 Dose: 100 mg Simvastatin (Simvastatin 20 Mg Tab) 20 mg PO HS ORA Stop: 01/02/24 21:59 Last Admin: 12/04/23 21:36 Dose: 20 mg Sodium Chloride (Sodium Chloride 0.65% Na Soln 45 Ml ([place])) 1 - 2 sprays NA PRN PRN PRN Reason: Nasal Dryness/Congestion Stop: 01/01/24 21:42 Verapamil HCl (Verapamil Hcl 240 Mg Tabcr) 240 mg PO BID ORA Stop: 01/02/24 20:59 Last Admin: 12/05/23 09:03 Dose: 240 mg Mental Health & Subst Abuse Tx Therapist Name of Therapist: Radha Domínguez Therapist's Therapy Appointment Comment: Please contact to follow up about therapy. Post Discharge Appointments Primary Care Physician Name Of Family Doctor/PCP: [facility] - Dr. Marin (will see Dr. Baez) Primary Care Date of Future Appointment with PCP: 12/11/23 Time of Appointment with PCP: 9:45 AM Provider Appointment Comment: [id number], [place] [address]
[2023-12-05] MEDS: QUEtiapine FUMARATE 25 MG TABLET PO SCH (21:02)
--- NOTE | 2023-12-06 09:36 | Psychiatric Progress Note ---
Date of Service December 06, 2023 Impression / Recommendations Impression 63 year old female with history of depression who presents with suicidal ideations after being the victim of a romance scam. Diagnostically unclear seems consistent with depression with psychotic features given difficulty distinguishing reality of recent situation and concern for possible delusional component vs worsening of Parkinsonism. 12/06/2023: Diagnostically remains unclear suspect MDD with psychotic features vs delusions related to neurocognitive changes. Given lower likelihood for Parkinson's disease and her poor sleep and ongoing delusions will titrate Seroquel further tonight. Overall, I spent a total of 40 minutes on this case including meeting with the patient, reviewing the chart, nursing report, multidisciplinary team meeting, orders, and documentation. (1) Major depression with psychotic features: (2) Depression with suicidal ideation: (3) Ischemic vascular disease: Plan 12/05/2023: Start Seroquel 50mg HS po. Continue sertraline 100mg BID. 12/04/2023: Continue current medications and tx plan. 12/03/2023: The patient was admitted to the [facility] ([facility] mental health unit) on q15 min checks (behavioral with suicide precautions) for safety. The patient will participate in group, recreational, and milieu therapies and will be offered additional individual and family sessions as clinically appropriate. Suicide Risk Level Suicide Risk Level: Moderate (q15 min suicide checks) (SI with plan prior to admission, now denying SI, feels safe in the hospital) Risk Factors Assessment Do You Have Access To A Gun?: Yes (Patient states she is unsure how to use firearms) Protective Factors Assessment Employed: No Interval History Identifying Information JOHN YI is a 63-year-old F who currently lives with her and was admitted on 12/02/23 21:29 on a 201 voluntary commitment for suicidal ideations secondary to her being the victim of a romance scam. Chief Complaint "I have feeling for Luke and it's not something I can wish away". Review of Systems Sleep Information Total Hours of Sleep: 4 Sleep Comments: HS Seroquel with PRN Vistaril Meal Information Percent Meal Consumed - Breakfast: 100 Percent Meal Consumed - Lunch: 100 Percent Meal Consumed - Dinner: 100 Nutrition Comment: pt. ate some breakfast after waking around 1130 Subjective Subjective Patient was seen & assessed and interval progress reviewed with treatment team nursing and social work. Last night discussing belief that the fadi bianchi was not a scam and truly was her communicating with a celebrity and she believes he is going to leave his and that he will be the one picking her up on discharge. She had difficulty falling asleep last night but napped during the day yesterday. Not attending many groups. Last night reported mood as "angry" and 2/10. Today still upset about not being able to have her slippers. Reviewed that neurology had at one point wondered about her having Parkinson's disease but her symptoms were inconsistent with this (she notes she only occasionally had a tremor) and so current diagnosis is ischemic vascular disease. She notes some short term memory changes, gait changes attributed to this. Discussed if she felt her suspectibility to romantic scam or any personality changes could have occurred due to her ischemic vascular disease and memory changes which she notes could possibly be the case but then clarified that she feels she was not scamed by the celebrity figured but rather that he was part of the scam from his management company. She struggles to reality-test this. She feels her sleep was still poor and felt no effect from the Seroquel, would like to increase the dose. Reports some ongoing urinary frequency, no other urinary symptoms. Physical Exam Psychiatric Orientation: alert and oriented x 3 Apperance: appropriately dressed and appropriately groomed Eye Contact: good eye contact Motor Behavior: no abnormal motor movements Speech: normal rate/rhythm/volume of speech Affect: + depressed affect Mood: + depressed mood and + anxious mood Thought Process: goal directed thought process Thought Content: + preoccupation and + delusions Suicidal Thoughts: denies suicidal thoughts Homicidal Thoughts: denies homicidal thoughts Hallucinations: no auditory hallucinations and no visual hallucinations Cognition: recent memory grossly intact, remote memory grossly intact and attention grossly intact Estimated Intelligence: average estimated intelligence and consistent with education level Insight: + limited insight Judgment: + limited judgement Vital Signs (Past 24 Hours) Last Vital Signs Temp 36.6 C 12/06/23 06:42 Pulse 72 12/06/23 06:42 Resp 18 12/06/23 06:42 BP 103/70 12/06/23 06:43 Pulse Ox 96 12/06/23 06:42 O2 Del Method Room Air 12/06/23 06:42 Results & Data ([facility]) Current Inpatient Medications Current Inpatient Medications: Current Inpatient Medications Acetaminophen (Acetaminophen 325 Mg Tab) 650 mg PO Q4H PRN PRN Reason: Headache or Minor Fever Stop: 01/01/24 21:42 Last Admin: 12/04/23 12:45 Dose: 650 mg Al Hydrox/Mg Hydrox/Simethicone (Aluminum/Magnesium Susp 30 Ml Udc) 30 ml PO Q4H PRN PRN Reason: GI Upset Stop: 01/01/24 21:42 Bismuth Subsalicylate (Bismuth Subsalicylate Liqd 236 Ml) 15 ml PO PRN PRN PRN Reason: Loose Stool Stop: 01/01/24 21:42 Folic Acid (Folic Acid 1 Mg Tab) 1 mg PO BID ORA Stop: 01/02/24 20:59 Last Admin: 12/06/23 09:03 Dose: 1 mg Hydroxyzine HCl (Hydroxyzine Hcl 25 Mg Tab) 50 mg PO HSZ PRN PRN Reason: Insomnia Stop: 01/01/24 21:42 Last Admin: 12/06/23 00:05 Dose: 50 mg Hydroxyzine HCl (Hydroxyzine Hcl 25 Mg Tab) 25 mg PO Q4H PRN PRN Reason: Anxiety Stop: 01/01/24 21:42 Last Admin: 12/05/23 03:10 Dose: 25 mg Ibuprofen (Ibuprofen 600 Mg Tab) 600 mg PO Q8H PRN PRN Reason: headache/pain Stop: 01/03/24 14:59 Last Admin: 12/04/23 17:47 Dose: 600 mg Levothyroxine Sodium (Levothyroxine Sodium 75 Mcg Tablet) 75 mcg PO 0000 [facility] Stop: 01/04/24 00:00 Last Admin: 12/06/23 00:00 Dose: 75 mcg Magnesium Hydroxide (Magnesium Hydroxide Susp 30 Ml Udc) 30 ml PO DAILY PRN PRN Reason: Constipation Stop: 01/01/24 21:42 Methotrexate (Methotrexate Sodium 2.5 Mg Tab) 15 mg PO We@0900 ORA Stop: 01/08/24 08:59 Pantoprazole Sodium (Pantoprazole 40 Mg Tab) 40 mg PO QAM ORA Stop: 01/03/24 08:59 Last Admin: 12/06/23 09:03 Dose: 40 mg Quetiapine Fumarate (Quetiapine Fumarate 25 Mg Tablet) 50 mg PO HS [facility] Stop: 01/04/24 21:59 Last Admin: 12/05/23 21:02 Dose: 50 mg Sertraline HCl (Sertraline Hcl 100 Mg Tablet) 100 mg PO BID ORA Stop: 01/01/24 22:59 Last Admin: 12/06/23 09:03 Dose: 100 mg Simvastatin (Simvastatin 20 Mg Tab) 20 mg PO HS ORA Stop: 01/02/24 21:59 Last Admin: 12/05/23 21:01 Dose: 20 mg Sodium Chloride (Sodium Chloride 0.65% Na Soln 45 Ml ([place])) 1 - 2 sprays NA PRN PRN PRN Reason: Nasal Dryness/Congestion Stop: 01/01/24 21:42 Verapamil HCl (Verapamil Hcl 240 Mg Tabcr) 240 mg PO BID ORA Stop: 01/02/24 20:59 Last Admin: 12/06/23 09:03 Dose: 240 mg Mental Health & Subst Abuse Tx Therapist Name of Therapist: Radha Domínguez Therapist's Therapy Appointment Comment: Please contact to follow up about therapy. Post Discharge Appointments Primary Care Physician Name Of Family Doctor/PCP: [facility] - Dr. Marin (will see Dr. Baez) Primary Care Date of Future Appointment with PCP: 12/11/23 Time of Appointment with PCP: 9:45 AM Provider Appointment Comment: [id number], [place] [address]
[2023-12-06] MEDS: NITROFURANTOIN MONOHYDRATE 100 MG CAP PO SCH (13:29)
[2023-12-06] MEDS: QUEtiapine FUMARATE 100 MG TABLET PO SCH (21:21)
--- NOTE | 2023-12-07 09:15 | Psychiatric Progress Note ---
Date of Service December 07, 2023 Impression / Recommendations Impression 63 year old female with history of depression who presents with suicidal ideations after being the victim of a romance scam. Diagnostically unclear seems consistent with depression with psychotic features given difficulty distinguishing reality of recent situation and concern for possible delusional component vs worsening of Parkinsonism. 12/07/2023: Diagnostically remains unclear suspect MDD with psychotic features vs delusions related to neurocognitive changes. Ongoing delusions and inability to reality-test related to romantic celebrity scam. Seroquel effective for sleep but some daytime fatigue so will adjust dosing timing to slightly earlier to help with initial sleep onset insomnia and ideally reduce risk of morning fatigue. Overall, I spent a total of 45 minutes on this case including meeting with the patient, reviewing the chart, nursing report, multidisciplinary team meeting, orders, and documentation. (1) Major depression with psychotic features: (2) Depression with suicidal ideation: (3) Ischemic vascular disease: Plan 12/07/2023: Adjust Seroquel 150mg after dinner 12/06/2023: Increase Seroquel to 150mg HS 12/05/2023: Start Seroquel 50mg HS po. Continue sertraline 100mg BID. 12/04/2023: Continue current medications and tx plan. 12/03/2023: The patient was admitted to the [facility] ([facility] mental health unit) on q15 min checks (behavioral with suicide precautions) for safety. The patient will participate in group, recreational, and milieu therapies and will be offered additional individual and family sessions as clinically appropriate. Suicide Risk Level Suicide Risk Level: Moderate (q15 min suicide checks) (SI with plan prior to admission, now denying SI, feels safe in the hospital) Risk Factors Assessment Do You Have Access To A Gun?: Yes (Patient states she is unsure how to use firearms) Protective Factors Assessment Employed: No Interval History Identifying Information JOHN YI is a 63-year-old F who currently lives with her and was admitted on 12/02/23 21:29 on a 201 voluntary commitment for suicidal ideations secondary to her being the victim of a romance scam. Chief Complaint "I still believe he is who he is". Review of Systems Sleep Information Total Hours of Sleep: 5 Sleep Comments: HS Seroquel with PRN Vistaril Meal Information Percent Meal Consumed - Breakfast: 100 Percent Meal Consumed - Lunch: 100 Percent Meal Consumed - Dinner: 75 Nutrition Comment: pt. ate some breakfast after waking around 1130 Subjective Subjective Patient was seen & assessed and interval progress reviewed with treatment team nursing and social work. Still with difficulty falling asleep but then was able to stay asleep. Still in bed this morning. Today she reports feeling tired. She thinks this could be from the Seroquel or from her ischemic brain changes. She had trouble falling asleep but then slept very well with the Seroquel, no other side effects except some possible fatigue. Reports she enjoyed being with her peers last night. Still unable to believe that scam is not real. We reviewed information that actor Rafael Deluca shared about scams and warning fans and she believes this doesn't apply to her and sees the purchase of giftcards as not being suspicious. Physical Exam Psychiatric Orientation: alert and oriented x 3 Apperance: appropriately dressed and appropriately groomed Eye Contact: good eye contact Motor Behavior: no abnormal motor movements Speech: normal rate/rhythm/volume of speech Affect: + constricted affect Mood: + depressed mood Thought Process: goal directed thought process Thought Content: + preoccupation and + delusions Suicidal Thoughts: denies suicidal thoughts Homicidal Thoughts: denies homicidal thoughts Hallucinations: no auditory hallucinations and no visual hallucinations Cognition: recent memory grossly intact, remote memory grossly intact and attention grossly intact Insight: + limited insight Judgment: + limited judgement Vital Signs (Past 24 Hours) Last Vital Signs Temp 36.7 C 12/07/23 06:38 Pulse 86 12/07/23 06:38 Resp 16 12/07/23 06:38 BP 113/76 12/07/23 06:38 Pulse Ox 96 12/06/23 06:42 O2 Del Method Room Air 12/06/23 06:42 Results & Data (U) Current Inpatient Medications Current Inpatient Medications: Current Inpatient Medications Acetaminophen (Acetaminophen 325 Mg Tab) 650 mg PO Q4H PRN PRN Reason: Headache or Minor Fever Stop: 01/01/24 21:42 Last Admin: 12/04/23 12:45 Dose: 650 mg Al Hydrox/Mg Hydrox/Simethicone (Aluminum/Magnesium Susp 30 Ml Udc) 30 ml PO Q4H PRN PRN Reason: GI Upset Stop: 01/01/24 21:42 Bismuth Subsalicylate (Bismuth Subsalicylate Liqd 236 Ml) 15 ml PO PRN PRN PRN Reason: Loose Stool Stop: 01/01/24 21:42 Folic Acid (Folic Acid 1 Mg Tab) 1 mg PO BID [facility] Stop: 01/02/24 20:59 Last Admin: 12/06/23 21:20 Dose: 1 mg Hydroxyzine HCl (Hydroxyzine Hcl 25 Mg Tab) 50 mg PO HSZ PRN PRN Reason: Insomnia Stop: 01/01/24 21:42 Last Admin: 12/06/23 00:05 Dose: 50 mg Hydroxyzine HCl (Hydroxyzine Hcl 25 Mg Tab) 25 mg PO Q4H PRN PRN Reason: Anxiety Stop: 01/01/24 21:42 Last Admin: 12/05/23 03:10 Dose: 25 mg Ibuprofen (Ibuprofen 600 Mg Tab) 600 mg PO Q8H PRN PRN Reason: headache/pain Stop: 01/03/24 14:59 Last Admin: 12/04/23 17:47 Dose: 600 mg Levothyroxine Sodium (Levothyroxine Sodium 75 Mcg Tablet) 75 mcg PO 0000 [facility] Stop: 01/04/24 00:00 Last Admin: 12/06/23 23:48 Dose: 75 mcg Magnesium Hydroxide (Magnesium Hydroxide Susp 30 Ml Udc) 30 ml PO DAILY PRN PRN Reason: Constipation Stop: 01/01/24 21:42 Methotrexate (Methotrexate Sodium 2.5 Mg Tab) 15 mg PO We@0900 [facility] Stop: 01/08/24 08:59 Nitrofurantoin Macrocrystals (Nitrofurantoin Monohydrate 100 Mg Cap) 100 mg PO BID ORA Stop: 12/10/23 21:01 Last Admin: 12/06/23 21:20 Dose: 100 mg Pantoprazole Sodium (Pantoprazole 40 Mg Tab) 40 mg PO QAM [facility] Stop: 01/03/24 08:59 Last Admin: 12/06/23 09:03 Dose: 40 mg Quetiapine Fumarate (Quetiapine Fumarate 100 Mg Tablet) 150 mg PO HS [facility] Stop: 01/05/24 21:59 Last Admin: 12/06/23 21:21 Dose: 150 mg Sertraline HCl (Sertraline Hcl 100 Mg Tablet) 100 mg PO BID ORA Stop: 01/01/24 22:59 Last Admin: 12/06/23 21:20 Dose: 100 mg Simvastatin (Simvastatin 20 Mg Tab) 20 mg PO HS ORA Stop: 01/02/24 21:59 Last Admin: 12/06/23 21:20 Dose: 20 mg Sodium Chloride (Sodium Chloride 0.65% Na Soln 45 Ml ([place])) 1 - 2 sprays NA PRN PRN PRN Reason: Nasal Dryness/Congestion Stop: 01/01/24 21:42 Verapamil HCl (Verapamil Hcl 240 Mg Tabcr) 240 mg PO BID ORA Stop: 01/02/24 20:59 Last Admin: 12/06/23 21:20 Dose: 240 mg Mental Health & Subst Abuse Tx Therapist Name of Therapist: Radha Domínguez Therapist's Therapy Appointment Comment: Please contact to follow up about therapy. Post Discharge Appointments Primary Care Physician Name Of Family Doctor/PCP: [facility] - Dr. Marin (will see Dr. Baez) Primary Care Date of Future Appointment with PCP: 12/11/23 Time of Appointment with PCP: 9:45 AM Provider Appointment Comment: [id number], [place] [address]
[2023-12-07] MEDS: QUEtiapine FUMARATE 25 MG TABLET PO SCH (18:32)
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
[2023-12-08] MEDS: QUEtiapine FUMARATE 200 MG TAB PO SCH (20:30)
[2023-12-09] MEDS: metHOTREXate sodium 2.5 MG TAB PO SCH (08:54)
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
[2023-12-09] MEDS: QUEtiapine FUMARATE 25 MG TABLET PO SCH (20:58)
--- NOTE | 2023-12-10 09:04 | Psychiatric Progress Note ---
Date of Service December 10, 2023 Impression / Recommendations Impression 63 year old female with history of depression who presents with suicidal ideations after being the victim of a romance scam. Diagnostically unclear seems consistent with depression with psychotic features given difficulty distinguishing reality of recent situation and concern for possible delusional component vs worsening of Parkinsonism. 12/10/2023: Diagnostically remains unclear suspect MDD with psychotic features vs delusions related to neurocognitive changes. MOCA with score of 22/30 with largest difficulty with inaccurate time of clock, item recall, categorical fluency. Challenging family meeting, she was upset with discussion about her family's concerns with her plan to continue her relationship with the scammer, continuing to think that he is a real celebrity. Thinks she can live on her alone though admits she has not been able to cook or clean for herself in months and family noted she now spends much of the day in bed. Gait changes in addition to urinary incontinence does raise question for NPH...suspect head imaging was done by [place] [facility] but will work to get these records for further review. May need to consider cross-taper from SSRI to SNRI if depression felt to be more likely cause of her symptoms given that family meeting showed significant ongoing concerns about her ability to care for herself due to her psychiatric symptoms. Overall, I spent a total of 40 minutes on this case including meeting with the patient, reviewing the chart, nursing report, multidisciplinary team meeting, orders, and documentation. (1) Major depression with psychotic features: (2) Depression with suicidal ideation: (3) Ischemic vascular disease: Plan 12/10/2023: Continue current medications and tx plan. 12/09/2023: Decrease Seroquel to 175mg HS. 12/08/2023: Increase Seroquel to 200mg HS. 12/07/2023: Adjust Seroquel 150mg after dinner 12/06/2023: Increase Seroquel to 150mg HS 12/05/2023: Start Seroquel 50mg HS po. Continue sertraline 100mg BID. 12/04/2023: Continue current medications and tx plan. 12/03/2023: The patient was admitted to the [facility] ([facility] mental health unit) on q15 min checks (behavioral with suicide precautions) for safety. The patient will participate in group, recreational, and milieu therapies and will be offered additional individual and family sessions as clinically appropriate. Suicide Risk Level Suicide Risk Level: Moderate (q15 min suicide checks) (SI with plan prior to admission, now denying SI, feels safe in the hospital) Risk Factors Assessment Do You Have Access To A Gun?: Yes (Patient states she is unsure how to use firearms) Protective Factors Assessment Employed: No Interval History Identifying Information JOHN YI is a 63-year-old F who currently lives with her and was admitted on 12/02/23 21:29 on a 201 voluntary commitment for suicidal ideations secondary to her being the victim of a romance scam. Chief Complaint "I'm upset with my family". Review of Systems Sleep Information Total Hours of Sleep: 6.30 Sleep Comments: HS Seroquel Meal Information Percent Meal Consumed - Breakfast: 50 Percent Meal Consumed - Lunch: 50 Percent Meal Consumed - Dinner: 100 Nutrition Comment: pt. ate some breakfast after waking around 1130 Subjective Subjective Patient was seen & assessed and interval progress reviewed with treatment team nursing and social work. Refused all unit programming yesterday, was on the phone at times. Slept more last night, 6.5. Had family meeting this morning. She was dismissive of their concerns, stated if they don't want her to have contact with "Luke" then she wants to live alone in an apartment. Continues to believe that melissa is a real celebrity talking to her. Feels she slept well with Seroquel dose last night and liked this. Did have episode of urinary incontinence. Seems unconcerned when speaking out how they are no longer able to use their bank as bank closed their account due to concerns for fraudulent activity due to her purchases. Tells me she last cooked and cleaned in [place] but thinks she could live on her own. Discuss grocery shopping and she states "I guess I'll have to so I have meals to eat". States frustration as she feels her family can't "accept me for who I am". She did agree to MOCA with RN. Physical Exam Psychiatric Orientation: alert and oriented x 3 Apperance: appropriately dressed and appropriately groomed Eye Contact: good eye contact Motor Behavior: no abnormal motor movements Speech: normal rate/rhythm/volume of speech Affect: + constricted affect Mood: + depressed mood Thought Process: goal directed thought process Thought Content: + preoccupation (with fadi bianchi ) and + delusions Suicidal Thoughts: denies suicidal thoughts Homicidal Thoughts: denies homicidal thoughts Hallucinations: no auditory hallucinations and no visual hallucinations Cognition: recent memory grossly intact, remote memory grossly intact and attention grossly intact Insight: + poor insight Judgment: + limited judgement Vital Signs (Past 24 Hours) Last Vital Signs Temp 36.1 C L 12/10/23 05:57 Pulse 84 12/10/23 05:58 Resp 16 12/10/23 05:57 BP 139/82 12/10/23 05:58 Pulse Ox 96 12/06/23 06:42 O2 Del Method Room Air 12/06/23 06:42 Results & Data ([facility]) Current Inpatient Medications Current Inpatient Medications: Current Inpatient Medications Acetaminophen (Acetaminophen 325 Mg Tab) 650 mg PO Q4H PRN PRN Reason: Headache or Minor Fever Stop: 01/01/24 21:42 Last Admin: 12/04/23 12:45 Dose: 650 mg Al Hydrox/Mg Hydrox/Simethicone (Aluminum/Magnesium Susp 30 Ml Udc) 30 ml PO Q4H PRN PRN Reason: GI Upset Stop: 01/01/24 21:42 Bismuth Subsalicylate (Bismuth Subsalicylate Liqd 236 Ml) 15 ml PO PRN PRN PRN Reason: Loose Stool Stop: 01/01/24 21:42 Folic Acid (Folic Acid 1 Mg Tab) 1 mg PO BID ORA Stop: 01/02/24 20:59 Last Admin: 12/09/23 20:56 Dose: 1 mg Hydroxyzine HCl (Hydroxyzine Hcl 25 Mg Tab) 50 mg PO HSZ PRN PRN Reason: Insomnia Stop: 01/01/24 21:42 Last Admin: 12/08/23 00:29 Dose: 50 mg Hydroxyzine HCl (Hydroxyzine Hcl 25 Mg Tab) 25 mg PO Q4H PRN PRN Reason: Anxiety Stop: 01/01/24 21:42 Last Admin: 12/05/23 03:10 Dose: 25 mg Ibuprofen (Ibuprofen 600 Mg Tab) 600 mg PO Q8H PRN PRN Reason: headache/pain Stop: 01/03/24 14:59 Last Admin: 12/08/23 12:27 Dose: 600 mg Levothyroxine Sodium (Levothyroxine Sodium 75 Mcg Tablet) 75 mcg PO DAILYBB ORA Stop: 01/09/24 07:59 Magnesium Hydroxide (Magnesium Hydroxide Susp 30 Ml Udc) 30 ml PO DAILY PRN PRN Reason: Constipation Stop: 01/01/24 21:42 Methotrexate (Methotrexate Sodium 2.5 Mg Tab) 15 mg PO We@0900 ORA Stop: 01/08/24 08:59 Last Admin: 12/09/23 08:54 Dose: 15 mg Nitrofurantoin Macrocrystals (Nitrofurantoin Monohydrate 100 Mg Cap) 100 mg PO BID ORA Stop: 12/10/23 21:01 Last Admin: 12/09/23 20:57 Dose: 100 mg Pantoprazole Sodium (Pantoprazole 40 Mg Tab) 40 mg PO QAM ORA Stop: 01/03/24 08:59 Last Admin: 12/09/23 08:53 Dose: 40 mg Quetiapine Fumarate (Quetiapine Fumarate 25 Mg Tablet) 175 mg PO HS ORA Stop: 01/08/24 21:59 Last Admin: 12/09/23 20:58 Dose: 175 mg Sertraline HCl (Sertraline Hcl 100 Mg Tablet) 100 mg PO BID ORA Stop: 01/01/24 22:59 Last Admin: 12/09/23 20:57 Dose: 100 mg Simvastatin (Simvastatin 20 Mg Tab) 20 mg PO HS ORA Stop: 01/02/24 21:59 Last Admin: 12/09/23 20:57 Dose: 20 mg Sodium Chloride (Sodium Chloride 0.65% Na Soln 45 Ml ([place])) 1 - 2 sprays NA PRN PRN PRN Reason: Nasal Dryness/Congestion Stop: 01/01/24 21:42 Verapamil HCl (Verapamil Hcl 240 Mg Tabcr) 240 mg PO BID ORA Stop: 01/02/24 20:59 Last Admin: 12/09/23 20:58 Dose: 240 mg Mental Health & Subst Abuse Tx Therapist Name of Therapist: Radha Domínguez Therapist's Date of Therapist Appointment: 12/15/23 Time of Therapist Appointment: 3:00pm Therapy Appointment Comment: appointment with [place] [facility] Appointments Primary Care Physician Name Of Family Doctor/PCP: [facility] - Dr. Marin (will see Dr. Baez) Primary Care Date of Future Appointment with PCP: 12/11/23 Time of Appointment with PCP: 9:45 AM Provider Appointment Comment: [address], [place] [address]
[2023-12-10] MEDS: LEVOTHYROXINE SODIUM 75 MCG TABLET PO SCH (09:22)
--- NOTE | 2023-12-11 09:04 | Psychiatric Progress Note ---
Date of Service December 11, 2023 Impression / Recommendations Impression 63 year old female with history of depression who presents with suicidal ideations after being the victim of a romance scam. Diagnostically unclear seems consistent with depression with psychotic features given difficulty distinguishing reality of recent situation and concern for possible delusional component vs worsening of Parkinsonism. 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 In reviewing outpatient neurology notes from [facility], including brain imaging, she had previous changes on CLAUDIA scan and most recently in Aug 2023 findings consistent with Parkison's disease on physical exam. Unclear if there may be a frontotemporal component leading to her increased susceptibility to the current romance scan and disinhibition leading to purchases of gift cards but I suspect this is in the case. Unfortunately there is not a lot more that can be done from a psychiatric standpoint if this is related to neurocognitive decline. Her MOCA score yesterday (22/30) is also worse than her most recent [facility] neurology assessment in which she scored 25/30 in December 2022. Reviewed past labwork done by [facility]. Based on prior imaging no suggestion for NPH at this time, urinary symptoms have been present for some time. Labwork of CBC/BMP and UA with urine culture ordered as requested by urology in anticipation of her surgical procedure next week. Disposition planning remains largest barrier to discharge. Overall, I spent a total of 50 minutes on this case including meeting with the patient, reviewing the chart, nursing report, multidisciplinary team meeting, orders, and documentation. (1) Vascular dementia with delusions: (2) Depression with suicidal ideation: (3) Ischemic vascular disease: Plan 12/11/2023: Continue current medications and tx plan. If Seroquel seems to offer no benefit over time in lessening delusions then would recommend taper to discontinuation as this could increase vascular disease risk if used chronically. Agree with outpatient neuropsychological testing. Agree with outpatient neurology follow-up. Family may need to begin discussions about decision makers and Linda's wishes when she gets to a point of not being able to make decisions on her own if insight/judgment concerns persist and cognitive functioning continues to decline or delusions worsen. 12/10/2023: Continue current medications and tx plan. 12/09/2023: Decrease Seroquel to 175mg HS. 12/08/2023: Increase Seroquel to 200mg HS. 12/07/2023: Adjust Seroquel 150mg after dinner 12/06/2023: Increase Seroquel to 150mg HS 12/05/2023: Start Seroquel 50mg HS po. Continue sertraline 100mg BID. 12/04/2023: Continue current medications and tx plan. 12/03/2023: The patient was admitted to the [facility] ([facility] mental health unit) on q15 min checks (behavioral with suicide precautions) for safety. The patient will participate in group, recreational, and milieu therapies and will be offered additional individual and family sessions as clinically appropriate. Suicide Risk Level Suicide Risk Level: Moderate (q15 min suicide checks) (SI with plan prior to admission, now denying SI, feels safe in the hospital) Risk Factors Assessment Do You Have Access To A Gun?: Yes (Patient states she is unsure how to use firearms) Protective Factors Assessment Employed: No Interval History Identifying Information JOHN YI is a 63-year-old F who currently lives with her and was admitted on 12/02/23 21:29 on a 201 voluntary commitment for suicidal ideations secondary to her being the victim of a romance scam. Chief Complaint "It's just not sinking in". Review of Systems Sleep Information Total Hours of Sleep: 6.30 Sleep Comments: HS Seroquel Meal Information Percent Meal Consumed - Breakfast: 75 Percent Meal Consumed - Lunch: 0 Percent Meal Consumed - Dinner: 100 Nutrition Comment: pt. ate some breakfast after waking around 1130 Subjective Subjective Patient was seen & assessed and interval progress reviewed with treatment team nursing and social work. Yesterday stated she was going to go on a "hunger strike" due to frustration over her family meeting and not being able to talk to romantic scammer. Today we continue to process her family meeting, frustration with her children's reactions to her recent behaviors and her concerns about not feeling she is being respected by her family. We again discuss the romance scam and why she is having such difficulty letting this relationship go, especially since it is impacting her ability to be around her grandchildren. She remains hopeful "Luke" will come visit her one day but also agrees with me that her difficulty accepting reality of the scammer not being a celebrity actor could be correlated to her worsening memory issues and other recent challenges. Discussed importance of talking to neurology about her urinary symptoms as well as sometimes this can all be connected. She notes "my memory is terrible". Feels her mood is "a little bit better". Discussed my concern about her functioning on her own if she choose the scammer over her family. States she could not live on her own and places to return home with her . She feels the Seroquel is very helpful, denies any urinary incontinence last night. Physical Exam Psychiatric Orientation: alert and oriented x 3 Apperance: appropriately dressed and appropriately groomed Eye Contact: good eye contact Motor Behavior: no abnormal motor movements Speech: normal rate/rhythm/volume of speech Affect: + constricted affect Mood: + irritable mood; no depressed mood Thought Process: goal directed thought process Thought Content: + preoccupation (with fadi bianchi ) and + delusions Suicidal Thoughts: denies suicidal thoughts Homicidal Thoughts: denies homicidal thoughts Hallucinations: no auditory hallucinations and no visual hallucinations Cognition: recent memory grossly intact, remote memory grossly intact and attention grossly intact Insight: + poor insight Judgment: + limited judgement Vital Signs (Past 24 Hours) Last Vital Signs Temp 36.4 C 12/11/23 06:00 Pulse 80 12/11/23 06:31 Resp 18 12/11/23 06:00 BP 122/80 12/11/23 06:31 Pulse Ox 96 12/06/23 06:42 O2 Del Method Room Air 12/06/23 06:42 Results & Data ([facility]) Current Inpatient Medications Current Inpatient Medications: Current Inpatient Medications Acetaminophen (Acetaminophen 325 Mg Tab) 650 mg PO Q4H PRN PRN Reason: Headache or Minor Fever Stop: 01/01/24 21:42 Last Admin: 12/04/23 12:45 Dose: 650 mg Al Hydrox/Mg Hydrox/Simethicone (Aluminum/Magnesium Susp 30 Ml Udc) 30 ml PO Q4H PRN PRN Reason: GI Upset Stop: 01/01/24 21:42 Bismuth Subsalicylate (Bismuth Subsalicylate Liqd 236 Ml) 15 ml PO PRN PRN PRN Reason: Loose Stool Stop: 01/01/24 21:42 Folic Acid (Folic Acid 1 Mg Tab) 1 mg PO BID ORA Stop: 01/02/24 20:59 Last Admin: 12/10/23 21:25 Dose: 1 mg Hydroxyzine HCl (Hydroxyzine Hcl 25 Mg Tab) 50 mg PO HSZ PRN PRN Reason: Insomnia Stop: 01/01/24 21:42 Last Admin: 12/08/23 00:29 Dose: 50 mg Hydroxyzine HCl (Hydroxyzine Hcl 25 Mg Tab) 25 mg PO Q4H PRN PRN Reason: Anxiety Stop: 01/01/24 21:42 Last Admin: 12/05/23 03:10 Dose: 25 mg Ibuprofen (Ibuprofen 600 Mg Tab) 600 mg PO Q8H PRN PRN Reason: headache/pain Stop: 01/03/24 14:59 Last Admin: 12/08/23 12:27 Dose: 600 mg Levothyroxine Sodium (Levothyroxine Sodium 75 Mcg Tablet) 75 mcg PO DAILYBB ORA Stop: 01/09/24 07:59 Last Admin: 12/10/23 09:22 Dose: 75 mcg Magnesium Hydroxide (Magnesium Hydroxide Susp 30 Ml Udc) 30 ml PO DAILY PRN PRN Reason: Constipation Stop: 01/01/24 21:42 Methotrexate (Methotrexate Sodium 2.5 Mg Tab) 15 mg PO We@0900 ORA Stop: 01/08/24 08:59 Last Admin: 12/09/23 08:54 Dose: 15 mg Pantoprazole Sodium (Pantoprazole 40 Mg Tab) 40 mg PO QAM ORA Stop: 01/03/24 08:59 Last Admin: 12/10/23 09:23 Dose: 40 mg Quetiapine Fumarate (Quetiapine Fumarate 25 Mg Tablet) 175 mg PO HS ORA Stop: 01/08/24 21:59 Last Admin: 12/10/23 21:24 Dose: 175 mg Sertraline HCl (Sertraline Hcl 100 Mg Tablet) 100 mg PO BID ORA Stop: 01/01/24 22:59 Last Admin: 12/10/23 21:25 Dose: 100 mg Simvastatin (Simvastatin 20 Mg Tab) 20 mg PO HS ORA Stop: 01/02/24 21:59 Last Admin: 12/10/23 21:25 Dose: 20 mg Sodium Chloride (Sodium Chloride 0.65% Na Soln 45 Ml ([place])) 1 - 2 sprays NA PRN PRN PRN Reason: Nasal Dryness/Congestion Stop: 01/01/24 21:42 Verapamil HCl (Verapamil Hcl 240 Mg Tabcr) 240 mg PO BID ORA Stop: 01/02/24 20:59 Last Admin: 12/10/23 21:24 Dose: 240 mg Mental Health & Subst Abuse Tx Therapist Name of Therapist: Radha Domínguez Therapist's Date of Therapist Appointment: 12/15/23 Time of Therapist Appointment: 3:00pm Therapy Appointment Comment: appointment with [place] Primary Care Physician Name Of Family Doctor/PCP: [facility] - Dr. Marin (will see Dr. Baez) Primary Care Date of Future Appointment with PCP: 12/11/23 Time of Appointment with PCP: 9:45 AM Provider Appointment Comment: [address], [facility] [id number] Neurologist Name of Neurologist: [facility]- Dr. Hills Neurologist's Date of Appointment with Neurologist: 02/01/24 Time of Appointment with Neurologist: 7:45 am
[2023-12-11 17:54] LABS: Basophils # (auto) 0.05 K/uL (0.00-0.20); Basophils % (auto) 0.8 %; Eosinophils # (auto) 0.26 K/uL (0.00-0.50); Eosinophils % (auto) 3.9 %; Hemoglobin 13.1 g/dl (12.0-16.0); Immature Granulocytes # (auto) 0.01 K/uL (0.01-0.20); Immature Granulocytes % (auto) 0.2 %; Lymphocytes % (auto) 19.5 %; Mean Corpuscular Hemoglobin 31.6 pg (25.0-34.0); Mean Corpuscular Hgb Conc 32.8 g/dL (32.0-36.0); Mean Corpuscular Volume 96.6 fL (80.0-100.0); Mean Platelet Volume 10.2 fL (9.4-12.4); Monocytes # (auto) 0.45 K/uL (0.11-0.59); Monocytes % (auto) 6.8 %; Neutrophils # (auto) 4.59 K/uL (1.40-6.50); Neutrophils % (auto) 68.8 %; Platelet Count 219 K/uL (130-400); RDW Coefficient of Variation 15.2 % (11.5-14.5); RDW Standard Deviation 53.9 fL (36.4-46.3); Red Blood Count 4.14 M/uL (4.20-5.40); White Blood Count 6.66 K/ul (4.8-10.8)
[2023-12-11 18:10] LABS: Albumin Globulin Ratio 1.5 (0.9-2); Albumin Level 4.4 gm/dl (3.4-5.0); BUN Creatinine Ratio 20.5 (10-20); Bilirubin,Total 0.3 mg/dl (0.2-1.0); Calcium 9.3 mg/dl (8.6-10.3); Creatinine Clr Calc Pharmacy 46.7 ml/min; Est GFR (African American) 48.9 ml/min; Est GFR (Non-African American) 42.2 ml/min; Globulin 2.9 gm/dl (2.5-4.0); Potassium 4.6 mmol/L (3.5-5.1); Total Protein 7.3 gm/dl (6.0-8.3)
--- NOTE | 2023-12-12 14:55 | Psychiatric Progress Note ---
Date of Service December 12, 2023 Impression / Recommendations Impression 63 year old female with history of depression who presents with suicidal ideations after being the victim of a romance scam. Diagnostically unclear seems consistent with depression with psychotic features given difficulty distinguishing reality of recent situation and concern for possible delusional component vs worsening of Parkinsonism. 12/12/2023: Continues to present delusions regarding internet friendship and shows limited insight into family concerns. Med hx reviewed with pt. Overall, I spent a total of 60 minutes on this case including meeting with the patient, reviewing the chart, nursing report, multidisciplinary team meeting, orders, and documentation. (1) Vascular dementia with delusions: (2) Depression with suicidal ideation: (3) Ischemic vascular disease: Plan 12/12/23: Continue current medications and tx plan. 12/11/2023: Continue current medications and tx plan. If Seroquel seems to offer no benefit over time in lessening delusions then would recommend taper to discontinuation as this could increase vascular disease risk if used chronically. Agree with outpatient neuropsychological testing. Agree with outpatient neurology follow-up. Family may need to begin discussions about decision makers and Linda's wishes when she gets to a point of not being able to make decisions on her own if insight/judgment concerns persist and cognitive functioning continues to decline or delusions worsen. 12/10/2023: Continue current medications and tx plan. 12/09/2023: Decrease Seroquel to 175mg HS. 12/08/2023: Increase Seroquel to 200mg HS. 12/07/2023: Adjust Seroquel 150mg after dinner 12/06/2023: Increase Seroquel to 150mg HS 12/05/2023: Start Seroquel 50mg HS po. Continue sertraline 100mg BID. 12/04/2023: Continue current medications and tx plan. 12/03/2023: The patient was admitted to the [facility] ([facility] inpatient mental health unit) on q15 min checks (behavioral with suicide precautions) for safety. The patient will participate in group, recreational, and milieu therapies and will be offered additional individual and family sessions as clinically appropriate. Suicide Risk Level Suicide Risk Level: Moderate (q15 min suicide checks) (SI with plan prior to admission, now denying SI, feels safe in the hospital) Suicide Risk Level Comments: risk level low while the patient is in the psych unit Risk Factors Assessment Do You Have Access To A Gun?: Yes (Patient states she is unsure how to use firearms) Protective Factors Assessment Employed: No Interval History Identifying Information JOHN YI is a 63-year-old F who currently lives with her and was admitted on 12/02/23 21:29 on a 201 voluntary commitment for suicidal ideations secondary to her being the victim of a romance scam. Chief Complaint "[]". Review of Systems Sleep Information Total Hours of Sleep: 1 Sleep Comments: HS Seroquel Meal Information Percent Meal Consumed - Breakfast: 50 Percent Meal Consumed - Lunch: 100 Percent Meal Consumed - Dinner: 100 Nutrition Comment: pt. ate some breakfast after waking around 1130 Subjective Subjective Patient was seen & assessed and interval progress reviewed with treatment team nursing and social work She reports coming in for feeling "sad, helpless". She is talking slowly and laying in bed. She reports being in a Internet friendship with Rafael from the TV show [employer]. She has sent him a gift cards. Family has been upset about this. She reports her in a crisis center worker approached her requesting she seek help in the hospital. She complains that they removed her either in cable for her Internet that they put her savings account money into a CD and that they ended her data plan. She talks about how her family has disrespected her and judged her. She reports never having meeting her Internet friend. Complains of short-term memory loss. Complains of poor sleep onset and maintenance. She denies suicidal ideation. She reports threatening suicide to her family briefly because she was frustrated with the situation. Reports being on Zoloft 100 mg for at least a year. Physical Exam Mental Examination Appearance: Well Groomed Eye Contact: Direct Eye Contact Motor Behavior: Unremarkable Speech: Normal Mood: Calm Affect: Calm Thought Process: Intact Hallucinations: None Insight: Fair Judgement: Fair Vital Signs (Past 24 Hours) Last Vital Signs Temp 36.9 C 12/12/23 06:30 Pulse 87 12/12/23 06:31 Resp 18 12/12/23 06:30 BP 94/68 L 12/12/23 06:31 Pulse Ox 96 12/06/23 06:42 O2 Del Method Room Air 12/06/23 06:42 Results & Data ([facility]) Laboratory Results Laboratory Results - last 24 hr 12/11/23 17:12 WBC 6.66 RBC 4.14 L Hgb 13.1 Hct 40.0 MCV 96.6 MCH 31.6 MCHC 32.8 RDW Std Deviation 53.9 H RDW Coeff of Karol 15.2 H Plt Count 219 MPV 10.2 Immature Gran % (Auto) 0.2 Neut % (Auto) 68.8 Lymph % (Auto) 19.5 [place] % (Auto) 6.8 Eos % (Auto) 3.9 Baso % (Auto) 0.8 Neut # (Auto) 4.59 Lymph # (Auto) 1.30 [place] # (Auto) 0.45 Eos # (Auto) 0.26 Baso # (Auto) 0.05 Immature Gran # (Auto) 0.01 Sodium 139 Potassium 4.6 Chloride 105 Carbon Dioxide 27 Anion Gap 7 BUN 27 H Creatinine 1.32 H Est Cr Clr Drug Dosing 46.7 Est GFR ( Amer) 48.9 Est GFR (Non-Af Amer) 42.2 BUN/Creatinine Ratio 20.5 H Glucose 87 Calcium 9.3 Total Bilirubin 0.3 AST 31 ALT 14 Alkaline Phosphatase 86 Total Protein 7.3 Albumin 4.4 Globulin 2.9 Albumin/Globulin Ratio 1.5 Current Inpatient Medications Current Inpatient Medications: Current Inpatient Medications Acetaminophen (Acetaminophen 325 Mg Tab) 650 mg PO Q4H PRN PRN Reason: Headache or Minor Fever Stop: 01/01/24 21:42 Last Admin: 12/04/23 12:45 Dose: 650 mg Al Hydrox/Mg Hydrox/Simethicone (Aluminum/Magnesium Susp 30 Ml Udc) 30 ml PO Q4H PRN PRN Reason: GI Upset Stop: 01/01/24 21:42 Bismuth Subsalicylate (Bismuth Subsalicylate Liqd 236 Ml) 15 ml PO PRN PRN PRN Reason: Loose Stool Stop: 01/01/24 21:42 Folic Acid (Folic Acid 1 Mg Tab) 1 mg PO BID ORA Stop: 01/02/24 20:59 Last Admin: 12/12/23 08:59 Dose: 1 mg Hydroxyzine HCl (Hydroxyzine Hcl 25 Mg Tab) 50 mg PO HSZ PRN PRN Reason: Insomnia Stop: 01/01/24 21:42 Last Admin: 12/08/23 00:29 Dose: 50 mg Hydroxyzine HCl (Hydroxyzine Hcl 25 Mg Tab) 25 mg PO Q4H PRN PRN Reason: Anxiety Stop: 01/01/24 21:42 Last Admin: 12/05/23 03:10 Dose: 25 mg Ibuprofen (Ibuprofen 600 Mg Tab) 600 mg PO Q8H PRN PRN Reason: headache/pain Stop: 01/03/24 14:59 Last Admin: 12/08/23 12:27 Dose: 600 mg Levothyroxine Sodium (Levothyroxine Sodium 75 Mcg Tablet) 75 mcg PO DAILYBB ORA Stop: 01/09/24 07:59 Last Admin: 12/12/23 06:51 Dose: 75 mcg Magnesium Hydroxide (Magnesium Hydroxide Susp 30 Ml Udc) 30 ml PO DAILY PRN PRN Reason: Constipation Stop: 01/01/24 21:42 Methotrexate (Methotrexate Sodium 2.5 Mg Tab) 15 mg PO We@0900 ORA Stop: 01/08/24 08:59 Last Admin: 12/09/23 08:54 Dose: 15 mg Pantoprazole Sodium (Pantoprazole 40 Mg Tab) 40 mg PO QAM ORA Stop: 01/03/24 08:59 Last Admin: 12/12/23 08:59 Dose: 40 mg Quetiapine Fumarate (Quetiapine Fumarate 25 Mg Tablet) 175 mg PO HS [facility] Stop: 01/08/24 21:59 Last Admin: 12/11/23 21:26 Dose: 175 mg Sertraline HCl (Sertraline Hcl 100 Mg Tablet) 100 mg PO BID ORA Stop: 01/01/24 22:59 Last Admin: 12/12/23 08:59 Dose: 100 mg Simvastatin (Simvastatin 20 Mg Tab) 20 mg PO HS ORA Stop: 01/02/24 21:59 Last Admin: 12/11/23 21:24 Dose: 20 mg Sodium Chloride (Sodium Chloride 0.65% Na Soln 45 Ml ([place])) 1 - 2 sprays NA PRN PRN PRN Reason: Nasal Dryness/Congestion Stop: 01/01/24 21:42 Verapamil HCl (Verapamil Hcl 240 Mg Tabcr) 240 mg PO BID ORA Stop: 01/02/24 20:59 Last Admin: 12/12/23 09:00 Dose: Not Given Mental Health & Subst Abuse Tx Therapist Name of Therapist: Radha Domínguez Therapist's Date of Therapist Appointment: 12/15/23 Time of Therapist Appointment: 3:00pm Therapy Appointment Comment: appointment with [facility] Primary Care Physician Name Of Family Doctor/PCP: [facility] - Dr. Marin (will see Dr. Baez) Primary Care Date of Future Appointment with PCP: 12/11/23 Time of Appointment with PCP: 9:45 AM Provider Appointment Comment: [address] [place] [address] Neurologist Name of Neurologist: [facility]- Dr. Hills Neurologist's Date of Appointment with Neurologist: 02/01/24 Time of Appointment with Neurologist: 7:45 am Other #1: Name of Aftercare Appointment: [facility] (therapy) Aftercare Appointment Comment: Please contact [email or web address] if interested in therapy services
--- NOTE | 2023-12-13 15:42 | Psychiatric Progress Note ---
Date of Service December 13, 2023 Impression / Recommendations Impression 63 year old female with history of depression who presents with suicidal ideations after being the victim of a romance scam. Diagnostically unclear seems consistent with depression with psychotic features given difficulty distinguishing reality of recent situation and concern for possible delusional component vs worsening of Parkinsonism. 12/13/2023: Discussed concerns with pt and during family meeting. May benefit from low dose levodopa trial with neurology and psychiatric follow-up. Recommend against internet usage in foreseeable future given delusions related to internet friendship. Plan to decrease nightly seroquel, questionable benefit outside of sleep aid. Overall, I spent a total of 60 minutes on this case including meeting with the patient, reviewing the chart, nursing report, multidisciplinary team meeting, orders, family meeting and documentation. (1) Vascular dementia with delusions: (2) Depression with suicidal ideation: (3) Ischemic vascular disease: Plan 12/13/23: Decrease nightly seroquel to 150mg. 12/12/23: Continue current medications and tx plan. 12/11/2023: Continue current medications and tx plan. If Seroquel seems to offer no benefit over time in lessening delusions then would recommend taper to discontinuation as this could increase vascular disease risk if used chronically. Agree with outpatient neuropsychological testing. Agree with outpatient neurology follow-up. Family may need to begin discussions about decision makers and Linda's wishes when she gets to a point of not being able to make decisions on her own if insight/judgment concerns persist and cognitive functioning continues to decline or delusions worsen. 12/10/2023: Continue current medications and tx plan. 12/09/2023: Decrease Seroquel to 175mg HS. 12/08/2023: Increase Seroquel to 200mg HS. 12/07/2023: Adjust Seroquel 150mg after dinner 12/06/2023: Increase Seroquel to 150mg HS 12/05/2023: Start Seroquel 50mg HS po. Continue sertraline 100mg BID. 12/04/2023: Continue current medications and tx plan. 12/03/2023: The patient was admitted to the [facility] ([facility] mental health unit) on q15 min checks (behavioral with suicide precautions) for safety. The patient will participate in group, recreational, and milieu therapies and will be offered additional individual and family sessions as clinically appropriate. Suicide Risk Level Suicide Risk Level: Moderate (q15 min suicide checks) (SI with plan prior to admission, now denying SI, feels safe in the hospital) Suicide Risk Level Comments: risk level low while the patient is in the psych unit Risk Factors Assessment Do You Have Access To A Gun?: Yes (Patient states she is unsure how to use firearms) Protective Factors Assessment Employed: No Interval History Identifying Information JOHN YI is a 63-year-old F who currently lives with her and was admitted on 12/02/23 21:29 on a 201 voluntary commitment for suicidal ideations secondary to her being the victim of a romance scam. Chief Complaint "[]". Review of Systems Sleep Information Total Hours of Sleep: 6.5 Sleep Comments: HS Seroquel Meal Information Percent Meal Consumed - Breakfast: 100 Percent Meal Consumed - Lunch: 100 Percent Meal Consumed - Dinner: 50 Nutrition Comment: pt. ate some breakfast after waking around 1130 Subjective Subjective Patient was seen & assessed and interval progress reviewed with treatment team nursing and social work Overnight refused Seroquel. Received Vistaril as needed for sleep and affective. Observed that her ambulation is slow has hand movements has difficulty getting up from sitting. We discussed her family's concerns and she has agreed to take a break from the Internet and to focus on herself. She reflected on her hospitalization and feels she has a better outlook. Met with the patient and her for a family meeting: Updated them on concerns of Parkinson's, cognitive decline, trial of dopamine treatment through neurologist and close follow-up with a psychiatrist and crisis center if if she decompensates. concerned about patient's handling of shared finances given the amount of money he has she has sent to [employer]. Physical Exam Mental Examination Appearance: Well Groomed Eye Contact: Direct Eye Contact Motor Behavior: Unremarkable Speech: Normal Mood: Calm Affect: Calm Thought Process: Intact Hallucinations: None Insight: Fair Judgement: Fair Vital Signs (Past 24 Hours) Last Vital Signs Temp 36.7 C 12/13/23 06:29 Pulse 80 12/13/23 06:29 Resp 16 12/13/23 06:29 BP 103/70 12/13/23 06:29 Pulse Ox 96 12/06/23 06:42 O2 Del Method Room Air 12/06/23 06:42 Results & Data ([facility]) Current Inpatient Medications Current Inpatient Medications: Current Inpatient Medications Acetaminophen (Acetaminophen 325 Mg Tab) 650 mg PO Q4H PRN PRN Reason: Headache or Minor Fever Stop: 01/01/24 21:42 Last Admin: 12/04/23 12:45 Dose: 650 mg Al Hydrox/Mg Hydrox/Simethicone (Aluminum/Magnesium Susp 30 Ml Udc) 30 ml PO Q4H PRN PRN Reason: GI Upset Stop: 01/01/24 21:42 Bismuth Subsalicylate (Bismuth Subsalicylate Liqd 236 Ml) 15 ml PO PRN PRN PRN Reason: Loose Stool Stop: 01/01/24 21:42 Folic Acid (Folic Acid 1 Mg Tab) 1 mg PO BID [facility] Stop: 01/02/24 20:59 Last Admin: 12/13/23 09:36 Dose: 1 mg Hydroxyzine HCl (Hydroxyzine Hcl 25 Mg Tab) 50 mg PO HSZ PRN PRN Reason: Insomnia Stop: 01/01/24 21:42 Last Admin: 12/12/23 21:42 Dose: 50 mg Hydroxyzine HCl (Hydroxyzine Hcl 25 Mg Tab) 25 mg PO Q4H PRN PRN Reason: Anxiety Stop: 01/01/24 21:42 Last Admin: 12/05/23 03:10 Dose: 25 mg Ibuprofen (Ibuprofen 600 Mg Tab) 600 mg PO Q8H PRN PRN Reason: headache/pain Stop: 01/03/24 14:59 Last Admin: 12/08/23 12:27 Dose: 600 mg Levothyroxine Sodium (Levothyroxine Sodium 75 Mcg Tablet) 75 mcg PO DAILYBB [facility] Stop: 01/09/24 07:59 Last Admin: 12/13/23 06:41 Dose: 75 mcg Magnesium Hydroxide (Magnesium Hydroxide Susp 30 Ml Udc) 30 ml PO DAILY PRN PRN Reason: Constipation Stop: 01/01/24 21:42 Methotrexate (Methotrexate Sodium 2.5 Mg Tab) 15 mg PO We@0900 [facility] Stop: 01/08/24 08:59 Last Admin: 12/09/23 08:54 Dose: 15 mg Pantoprazole Sodium (Pantoprazole 40 Mg Tab) 40 mg PO QAM [facility] Stop: 01/03/24 08:59 Last Admin: 12/13/23 09:36 Dose: 40 mg Quetiapine Fumarate (Quetiapine Fumarate 25 Mg Tablet) 75 mg PO HS ORA Stop: 01/12/24 21:59 Quetiapine Fumarate (Quetiapine Fumarate 100 Mg Tablet) 100 mg PO HS ORA Stop: 01/12/24 21:59 Sertraline HCl (Sertraline Hcl 100 Mg Tablet) 100 mg PO BID [facility] Stop: 01/01/24 22:59 Last Admin: 12/13/23 09:36 Dose: 100 mg Simvastatin (Simvastatin 20 Mg Tab) 20 mg PO HS ORA Stop: 01/02/24 21:59 Last Admin: 12/12/23 21:39 Dose: 20 mg Sodium Chloride (Sodium Chloride 0.65% Na Soln 45 Ml ([place])) 1 - 2 sprays NA PRN PRN PRN Reason: Nasal Dryness/Congestion Stop: 01/01/24 21:42 Verapamil HCl (Verapamil Hcl 240 Mg Tabcr) 240 mg PO BID [facility] Stop: 01/02/24 20:59 Last Admin: 12/13/23 09:36 Dose: 240 mg Mental Health & Subst Abuse Tx Therapist Name of Therapist: Radha Domínguez Therapist's Date of Therapist Appointment: 12/15/23 Time of Therapist Appointment: 3:00pm Therapy Appointment Comment: appointment with [facility] Primary Care Physician Name Of Family Doctor/PCP: [facility] - Dr. Marin (will see Dr. Baez) Primary Care Date of Future Appointment with PCP: 12/11/23 Time of Appointment with PCP: 9:45 AM Provider Appointment Comment: [address], [place] [address] Neurologist Name of Neurologist: [facility]- Dr. Hills Neurologist's Date of Appointment with Neurologist: 02/01/24 Time of Appointment with Neurologist: 7:45 am Other #1: Name of Aftercare Appointment: [facility] [facility] (therapy) Aftercare Appointment Comment: Please contact if interested in therapy services
[2023-12-13] MEDS: QUEtiapine FUMARATE 25 MG TABLET PO SCH (21:22)
[2023-12-13] MEDS: QUEtiapine FUMARATE 100 MG TABLET PO SCH (21:22)
--- NOTE | 2023-12-14 10:53 | Discharge Summary ---
Date of Service December 14, 2023 History of Present Illness 63 year old female with no significant past psychiatric history who presented after voicing suicidal ideations with a plan to overdose on her medications. The patient recently was the subject of family intervention because she has been involved online with a romance scammer that she was led to believe was an actor Rafael Deluca. She described how this months long online romance occurred. It has all the classic red flags of a typical romance scam. She states that she sent at least 1000 dollars in [employer] Gift cards to the scammer. Initially when we started the interview, the patient continued to talk about the scammer as "Luke" and said she was holding out hope one day to actually meet him. I explained to her in depth how these scams work and everything that I outlined to her about their methods she recognized. We discussed that "Rafael" had his photos stolen and the person sending her love notes and even bush was actually a group of young west men. She did superficially acknowledge that it was probably the case. We discussed that getting through this embarrassing situation was by learning as much as she can about what happened to her and realizing that she was profiled and targeted by criminals. One step that she agreed to was to not refer to the person by the name he gave but by calling him "the scammer". She says that she knows she will get through this but it is so difficult. At the time of the interview, she denied suicidal or homicidal ideation and showed no signs of amberly or psychosis. She realizes that she became a target because she is not happy in her relationship with her : She feels unappreciated by her and two adult children. She particularly wants to get through this so she can see her grandchildren again. Physical Exam Mental Examination Appearance: Well Groomed Eye Contact: Direct Eye Contact Motor Behavior: Slowed and Unsteady Speech: Normal Mood: Calm Affect: Calm Thought Process: Intact Hallucinations: None Insight: Fair Judgement: Fair Vital Signs (Past 24 Hours) Last Vital Signs Temp 36.9 C 12/14/23 09:01 Pulse 82 12/14/23 09:01 Resp 16 12/14/23 09:01 BP 128/84 12/14/23 09:01 Pulse Ox 96 12/14/23 09:01 O2 Del Method Room Air 12/06/23 06:42 Principal Diagnosis Vascular dementia with delusions Psychiatric Data See daily stay summary. In short, safety was maintained and the patient was cooperative with care. Medication changes included trial of seroquel at night which did not improve psychosis and was d/c. A family session was held and safety plan was completed prior to discharge. Concern for disinhibition secondary to parkinson's disease. Recommend to f/u outpatient neurology for trial of levodopa under close supervision of mental health practitioner. Recommend to avoid use of internet or cell phones for 2-3 months due to concern for worsening delusional behavior. Day of Discharge Assessment Today the patient voices readiness for discharge. They note improvement in mood and deny thoughts to harm self or others. Thoughts remain organized and they are improved from admission. Maintains delusion of internet friendship with celebrity. They agree to take mediations as prescribed and keep follow-up appointments. They are stable for discharge to outpatient level of care. Transition of Care Transition Of Care Record: was reviewed with the patient Advance Directives Advance Directives Information Provided: Yes Advance Directives: No Mental Health Advance Directive: No Advance Directives on File: No Living Will: No Power of Personal Lines Insurance Agent: No Advance Directives Reason:: Declines as Mental Health Visit. Suicide Risk Level Suicide Risk Level Comments: risk level low while the patient is in the psych unit Risk Factors Assessment Do You Have Access To A Gun?: Yes (Patient states she is unsure how to use firearms) Protective Factors Assessment Employed: No Discharge Data Lab Results 12/02/23 12/02/23 12/02/23 16:00 17:12 Unknown WBC 7.94 RBC 4.23 Hgb 13.5 Hct 40.7 MCV 96.2 MCH 31.9 MCHC 33.2 RDW Std Deviation 53.7 H RDW Coeff of Karol 15.3 H Plt Count 230 MPV 9.8 Immature Gran % (Auto) 0.5 Neut % (Auto) 71.6 Lymph % (Auto) 14.5 [place] % (Auto) 8.3 Eos % (Auto) 4.3 Baso % (Auto) 0.8 Neut # (Auto) 5.69 Lymph # (Auto) 1.15 L [place] # (Auto) 0.66 H Eos # (Auto) 0.34 Baso # (Auto) 0.06 Immature Gran # (Auto) 0.04 Sodium 138 Potassium 4.3 Chloride 106 Carbon Dioxide 24 Anion Gap 8 BUN 16 Creatinine 1.12 Est Cr Clr Drug Dosing 55.0 Est GFR ( Amer) 59.7 Est GFR (Non-Af Amer) 51.5 BUN/Creatinine Ratio 14.3 Glucose 93 Estimat Average Glucose 128 Hemoglobin A1c 6.1 H Calcium 9.6 Total Bilirubin 0.4 AST 20 ALT 9 Alkaline Phosphatase 88 Total Protein 7.2 Albumin 4.4 Globulin 2.8 Albumin/Globulin Ratio 1.6 Triglycerides 74 Cholesterol 149 LDL Cholesterol, Calc 71 VLDL Cholesterol, Calc 15 HDL Cholesterol 63 Cholesterol/HDL Ratio 2.4 TSH 1.963 Urine Color Yellow Urine Appearance Cloudy A Urine pH 6.0 Ur Specific Bee 1.013 Urine Protein Negative Urine Glucose (UA) Negative Urine Ketones Negative Urine Blood Negative Urine Nitrite Negative Urine Bilirubin Negative Urine Urobilinogen Negative Ur Leukocyte Esterase 3+ H Urine WBC (Auto) >50 H Urine RBC (Auto) 0-2 U Hyaline Cast (Auto) 0-2 U Epithel Cells (Auto) 0-2 Urine Bacteria (Auto) 4+ H Salicylates < 3.0 L Urine Opiates Screen Neg Ur Methadone, Qual Neg Acetaminophen < 3 L Urine Barbiturates Neg Ur Phencyclidine (PCP) Neg U Amphetamin/Meth Scrn Neg MDMA (Ecstasy) Screen Neg U Benzodiazepines Scrn Neg Ur Cocaine Metabolite Neg U Marijuana (THC) Screen Neg Ethyl Alcohol mg/dL < 10.0 SARS-CoV-2, RNA, NAAT NEGATIVE 12/11/23 17:12 WBC 6.66 RBC 4.14 L Hgb 13.1 Hct 40.0 MCV 96.6 MCH 31.6 MCHC 32.8 RDW Std Deviation 53.9 H RDW Coeff of Karol 15.2 H Plt Count 219 MPV 10.2 Immature Gran % (Auto) 0.2 Neut % (Auto) 68.8 Lymph % (Auto) 19.5 [place] % (Auto) 6.8 Eos % (Auto) 3.9 Baso % (Auto) 0.8 Neut # (Auto) 4.59 Lymph # (Auto) 1.30 [place] # (Auto) 0.45 Eos # (Auto) 0.26 Baso # (Auto) 0.05 Immature Gran # (Auto) 0.01 Sodium 139 Potassium 4.6 Chloride 105 Carbon Dioxide 27 Anion Gap 7 BUN 27 H Creatinine 1.32 H Est Cr Clr Drug Dosing 46.7 Est GFR ( Amer) 48.9 Est GFR (Non-Af Amer) 42.2 BUN/Creatinine Ratio 20.5 H Glucose 87 Estimat Average Glucose Hemoglobin A1c Calcium 9.3 Total Bilirubin 0.3 AST 31 ALT 14 Alkaline Phosphatase 86 Total Protein 7.3 Albumin 4.4 Globulin 2.9 Albumin/Globulin Ratio 1.5 Triglycerides Cholesterol LDL Cholesterol, Calc VLDL Cholesterol, Calc HDL Cholesterol Cholesterol/HDL Ratio TSH Urine Color Urine Appearance Urine pH Ur Specific Bee Urine Protein Urine Glucose (UA) Urine Ketones Urine Blood Urine Nitrite Urine Bilirubin Urine Urobilinogen Ur Leukocyte Esterase Urine WBC (Auto) Urine RBC (Auto) U Hyaline Cast (Auto) U Epithel Cells (Auto) Urine Bacteria (Auto) Salicylates Urine Opiates Screen Ur Methadone, Qual Acetaminophen Urine Barbiturates Ur Phencyclidine (PCP) U Amphetamin/Meth Scrn MDMA (Ecstasy) Screen U Benzodiazepines Scrn Ur Cocaine Metabolite U Marijuana (THC) Screen Ethyl Alcohol mg/dL SARS-CoV-2, RNA, NAAT Hospital Course (1) Vascular dementia with delusions: (2) Parkinsonism: (3) MDD (major depressive disorder), recurrent, in partial remission: (4) Ischemic vascular disease: Plan 12/13/23: D/c seroquel as pt refusing and limited benefit. 12/12/23: Continue current medications and tx plan. 12/11/2023: Continue current medications and tx plan. If Seroquel seems to offer no benefit over time in lessening delusions then would recommend taper to discontinuation as this could increase vascular disease risk if used chronically. Agree with outpatient neuropsychological testing. Agree with outpatient neurology follow-up. Family may need to begin discussions about decision makers and Linda's wishes when she gets to a point of not being able to make decisions on her own if insight/judgment concerns persist and cognitive functioning continues to decline or delusions worsen. 12/10/2023: Continue current medications and tx plan. 12/09/2023: Decrease Seroquel to 175mg HS. 12/08/2023: Increase Seroquel to 200mg HS. 12/07/2023: Adjust Seroquel 150mg after dinner 12/06/2023: Increase Seroquel to 150mg HS 12/05/2023: Start Seroquel 50mg HS po. Continue sertraline 100mg BID. 12/04/2023: Continue current medications and tx plan. 12/03/2023: The patient was admitted to the [facility] ([facility] mental health unit) on q15 min checks (behavioral with suicide precautions) for safety. The patient will participate in group, recreational, and milieu therapies and will be offered additional individual and family sessions as clinically appropriate. Mental Health & Subst Abuse Tx Therapist Name of Therapist: Radha Domínguez Therapist's Date of Therapist Appointment: 12/15/23 Time of Therapist Appointment: 3:00pm Therapy Appointment Comment: appointment with [place] [facility] Discharge Appointments Primary Care Physician Name Of Family Doctor/PCP: [facility] - Dr. Marin (will see Dr. GARCIA) Primary Care Date of Future Appointment with PCP: 12/17/23 Time of Appointment with PCP: 2:05 PM arrival time Provider Appointment Comment: [address], [place] [address] Neurologist Name of Neurologist: [facility]- Dr. Hills Neurologist's Date of Appointment with Neurologist: 02/01/24 Time of Appointment with Neurologist: 7:45 am Specialist Name of Specialist: Dr. Narayanan (Urology) Phone Number for Specialist: [phone] Date of Appointment with Specialist: 12/16/23 Time of Appointment with Specialist: 9:10AM Specialty Appointment Comment: [facility] Other #1: Name of Aftercare Appointment: [facility] (t herapy) Aftercare Appointment Comment: Please contact if interested in therapy services Discharge Plan Discharge Items Patient Disposition: Home - Self-Care Reason For Visit: SUICIDAL IDEATION Discharge Diagnosis: (1) Vascular dementia with delusions: (2) Parkinsonism (3) Major Depressive Disorder, recurrent, in partial remission (4) Ischemic vascular disease: Condition on Discharge: Fair Activity: As commented below Activity Comment: Avoid internet and cell phone usuage Non-emergency contact: Primary Care Provider and Hotel Concierge Call non-emergency contact if: you have any medication questions Follow-up/Referrals: Murali Marin MD [Primary Care Provider] - Diet: Regular Addtl Attending Provider Instructions: Continue antidepressant Sertraline 100mg twice daily Take Vistaril 50mg NEEDED for sleep Engage in weekly therapy Avoid cellphone and internet use Pending Studies at Discharge: No Stand-Alone Forms: My [employer], Smoking Cessation Medications and DC Order Prescriptions: New hydroxyzine HCl 50 mg tablet 50 mg PO HSZ PRN (Reason: insomnia) Qty: 30 0RF Continued verapamil 240 mg capsule,ext rel. pellets 24 hr 240 mg PO BID calcium carbonate-vitamin D3 [Calcium 600 with Vitamin D3] 600 mg-12.5 mcg (500 unit) capsule 1 cap PO BID glucosamine-chondroitin 900 mg tablet 900 mg PO BID levothyroxine [Synthroid] 75 mcg tablet 75 mcg PO 0300 methotrexate sodium 2.5 mg tablet 15 mg PO WK pantoprazole 40 mg tablet,delayed release (DR/EC) 40 mg PO QAM simvastatin 20 mg tablet 20 mg PO HS folic acid 1 mg tablet 1 mg PO BID Cbd Oil 3 drp PO QAM PRN (Reason: preventative of joint problems) Chaga Mushroom Supp 1 ea PO DAILY Rx Instructions: Take with tea sertraline 100 mg Tablet 100 mg PO BID No Action nitrofurantoin monohyd/m-cryst [Macrobid] 100 mg capsule 100 mg PO BID 7 Days Qty: 14 0RF Rx Instructions: must administer with a meal/food Discharge Orders: Discharge Order (Routine); Ordered 12/14/23 Ordered By: Vincent Case Discharge Order- CHF (Routine); Ordered 12/14/23 Ordered By: Vincent Case Admission Data Admit Date/Time: 12/02/23 21:29 Attending Provider: Vincent Case Admit Provider: Urszula Neri Primary Care Provider: Murali Marin Other Interventions: Discharge Summary Assessment (RN) Last Done: 12/14/23 09:01 PSY Interdisciplinary Discharge Planning Last Done: 12/14/23 09:00 [place] [address] D/C day mgmt > 30 min Patient Type Established History Expanded Problem Focused Exam Expanded Problem Focused Medical Decision Making Moderate Complexity Diagnoses Vascular dementia with delusions F01.52 Parkinsonism G20 MDD (major depressive disorder), recurrent, in partial remission F33.41 Ischemic vascular disease I99.8 Time Spent (min) 45
[2023-12-14 11:23] LABS: Appearance Urine Clear (Clear); Bilirubin Urine Negative (Negative); Blood Urine Negative (Negative); Color Urine Yellow; Glucose Urine UA Negative (Negative); Ketones Urine Negative (Negative); Leukocyte Esterase Urine Negative (Negative); Nitrite Urine Negative (Negative); Protein Urine Negative (Negative); Specific Gravity Urine 1.013 (1.000-1.030); Urobilinogen Urine Negative (Negative); pH Urine 7.5 (4.5-7.5)
[2023-12-14] MEDS ORDERED: QUEtiapine FUMARATE 25 MG TABLET PO SCH (22:00)
== END 2023-12-14 11:35 | disposition home or self-care (01) | DRG 71 ==
LOC: ED 14:48 → 3S 21:29 → SUATTDRO 21:29 → 3S 21:35